=== PATIENT | female | born 1965 | race Caucasian/White ===

== ENCOUNTER 2024-06-04 08:55 | Emergency (ER) | payer OTHER, SELFPAY ==
[2024-06-04 09:01] VITALS: BP 117/70; PULSE 103; RESP 18; TEMP 37.8; O2SAT 97
--- OUTSIDE RECORDS SUMMARY | 2024-06-04 09:16 | XMS_ITS | Encounter Summary ---
Author Organization [facility] Address [address] [place] [address] Phone Care Team Providers Care Public Welfare Worker Name Role Phone ChinmaychitraUmesh DO Primary Care Provider [phone] Encounter Details Date Type Department Care Team (Late st Contact Info) Description 05/02/2022 Lab Requisition [facility] Laboratory Services [address] [place] [address] Amrit Cao MD [address] [place] [address] [address] [place] [address] Encounter for screening for COVID-19 Social History Tobacco Use Types Packs/Day Years Used Date Smoking Tobacco: Every Day Cigarettes Smokeless Tobacco: Never Alcohol Use Standard Drinks/Week Comments Yes 0 (1 standard drink = 0.6 oz pur e alcohol) Sexually Active Control Partners Comments Yes Male Comments No Sex and Gender Information Value Date Recorded Sex Assigned at Not on file Legal Sex Female 8:51 PM CDT Gender Identity Not on file Sexual Orientation Not on file documented as of this encounter Plan of Treatment Not on file documented as of this encounter Procedures Procedure Name Priority Date/Time Associated Diagnosis Comments SARS-COV-2 BY MOLECULAR Routine 05/02/2022 11:15 AM STAFF MECHANICAL ENGINEER Encounter for screening for COVID-19 documented in this encounter Results * SARS-COV-2 BY MOLECULAR (05/02/2022 11:15 AM STAFF MECHANICAL ENGINEER) SARSCOV2 NOT DETECTED (Referen ce Range for this test is Not Detected ) [facility] THERMOFISHER FAST DX 05/02/2022 11:13 PM STAFF MECHANICAL ENGINEER [facility] Comment:This test was perfor med by a RT-PCR method. Other Non-Phlebotomy Collection / Unknown 05/02/2022 11:15 AM STAFF MECHANICAL ENGINEER 05/02/2022 1:09 PM STAFF MECHANICAL ENGINEER Narrative [facility] - 05/02/2022 11:13 PM STAFF MECHANICAL ENGINEER Authorized Fact Sheets about this test for providers and patients are available at: https://www.fda.gov/medical-devices/fhmaasbmp-hmdtwdafns-rarzgpz-devices/emergen -us e-authorizations us Amrit Cao MD MICROBIOLOGY - GENERAL ORDERAB LES Final Result [facility] [address] [place] [address], documented in this encounter Visit Diagnoses Diagnosis Encounter for screening for COVID-19 documented in this encounter Additional Health Concerns Infection Onset Date Last Indicated Resolved Time COVID - 19 04/26/2022 05/09/2022 05/19/2022 12:1 6 AM STAFF MECHANICAL ENGINEER documented as of this encounter Care Teams Public Welfare Worker Relationship Specialty Start Date End Date Umesh Cullen DO PCP - General Family Medicine 02/19/18 documented as of this encounter
--- OUTSIDE RECORDS SUMMARY | 2024-06-04 09:16 | XMS_ITS | Referral Summary ---
Author Organization [facility] Address [address] [place] [address] Care Team Providers Care Furnace Tapper Name Role Phone Santi Cullen DO Primary Care Provider [phone]- [phone] Sandip Parker DO Unavailable [phone] Encounters Date Type Department Care Team Description 05/25/2024 10:15 AM ASBESTOS HAZARD ABATEMENT WORKER - 05/25/2024 11:59 PM ASBESTOS HAZARD ABATEMENT WORKER Hospital Encounter [address] [address] RUQ pain; Vomiting, unspecified vomiting type, unspecified whether nausea present Discharge Disposition: Discharge to home or self care 05/25/2024 10:15 AM ASBESTOS HAZARD ABATEMENT WORKER - 05/25/2024 11:59 PM [facility] Hospital Encounter [address] [address] Encounter for screening mammogram for malignant neoplasm of breast Discharge Disposition: Discharge to home or self care from Last 3 Months Allergies No known active allergies Medications venlafaxine XR (EFFEXOR-XR) 75 mg 24 hr capsule Take 75 mg by mouth daily. Active sertraline (ZOLOFT) 50 mg tablet Take 50 mg by mouth daily. Active nitroglycerin (NITROSTAT) 0.[address] 1 tablet (0.4 mg total) under the tongue every 5 (five) minutes as needed for chest pain (up to 3 times). 100 tablet 11 01/02/2018 Active thyroid (ARMOUR THYROID) 30 mg tablet 30 mg daily. Active cyanocobalamin (Vitamin B-12) 500 mcg tabletIndicatio ns:Prevention of Vitamin B12 Deficiency Take 500 mcg by mouth daily. Active magnesium gluconate (MAGONATE) 500 mg (27 mg elemental) tabletIndicatio ns:hypomagnesem ia Take 500 mg by mouth daily. Active dexlansoprazole (DEXILANT) 30 mg capsule Take 30 mg by mouth daily. Active Active Problems Problem Noted Date Diagnosed Date Hyperlipidemia 01/01/2018 EMELYN (generalized anxiety disorder) 01/01/2018 Prediabetes 01/01/2018 Chest pain 01/01/2018 Assessment & Plan (01/01/2018 1:02 PM CDT): Patient to be seen by cardiology. Patient has low risk for cardiac origin with a HEART score of less than 3. Most likely origin of pain is esophageal spasm as it did respond to nitroglycerin. Stress testing at the discretion of Cardiology. Plan for discharge when they have completed their workup. Immunizations Name Administration Dates Next Due Td, adsorbed 04/28/2009 Social History Tobacco Use Types Packs/Day Years Used Date Smoking Tobacco: Every Day Cigarettes Smokeless Tobacco: Never Alcohol Use Standard Drinks/Week Comments No 0 (1 standard drink = 0.6 oz pur e alcohol) Comments No Sex and Gender Information Value Date Recorded Sex Assigned at Not on file Legal Sex Female 11:55 PM ASBESTOS HAZARD ABATEMENT WORKER Gender Identity Not on file Sexual Orientation Not on file Last Filed Vital Signs Vital Sign Reading Time Taken Comments Blood Pressure 117/75 03/02/2018 12:30 PM ASBESTOS HAZARD ABATEMENT WORKER Pulse 89 03/02/2018 12:30 PM ASBESTOS HAZARD ABATEMENT WORKER Temperature 36.6 C (97.8 F) 03/02/2018 12:30 PM ASBESTOS HAZARD ABATEMENT WORKER Respiratory Rate 18 03/02/2018 12:30 PM ASBESTOS HAZARD ABATEMENT WORKER Oxygen Saturation 100% 03/02/2018 12:30 PM ASBESTOS HAZARD ABATEMENT WORKER Inhaled Oxygen Concentration - - Weight 86.2 kg (190 lb) 03/02/2018 11:13 AM ASBESTOS HAZARD ABATEMENT WORKER Height 162.6 cm (5' 4 ) 05/25/2024 10:25 AM ASBESTOS HAZARD ABATEMENT WORKER Body Mass Index 32.61 03/02/2018 11:13 AM ASBESTOS HAZARD ABATEMENT WORKER Plan of Treatment Not on file Procedures Procedure Name Priority Date/Time Associated Diagnosis Comments NM HEPATOBILIARY IMAGING W PHARMACEUTICAL INTERVENTION Schedule Routine, Read Routine (OP Routine) 05/25/2024 1:40 PM ASBESTOS HAZARD ABATEMENT WORKER RUQ pain Vomiting, unspecified vomiting type, unspecified whether nausea present SCREENING MAMMOGRAM BILATERAL W BIGG Schedule Routine, Read Routine (OP Routine) 05/25/2024 10:25 AM ASBESTOS HAZARD ABATEMENT WORKER Encounter for screening mammogram for malignant neoplasm of breast HEPATITIS C ANTIBODY Routine 01/03/2024 9:44 AM CDT COLONOSCOPY 03/02/2018 11:33 AM ASBESTOS HAZARD ABATEMENT WORKER from Last 3 Months or Most Recently Relevant to Health Maintenance Results * NM Hepatobiliary Imaging W GBEF (05/25/2024 1:40 PM ASBESTOS HAZARD ABATEMENT WORKER) Anatomical Region Laterality Modality Body N/A Nuclear Medicine 05/25/2024 3:01 PM ASBESTOS HAZARD ABATEMENT WORKER Narrative 05/25/2024 3:04 PM ASBESTOS HAZARD ABATEMENT WORKER EXAM DESCRIPTION: NM HEPATOBILIARY IMAGING W PHARMACEUTICAL INTERVENTION RADIOPHARMACEUTICAL: 5.2 mCi Tc-99m mebrofenin via a left antecubital vein IV site and 8 oz Ensure Plus or equivalent P.O. REASON FOR STUDY: Intermittent abdominal pain and bloating for 2 years. TECHNIQUE: Following the intravenous administration of the radiopharmaceutical, sequential abdominal images were obtained. COMPARISON: CT abdomen and pelvis 06/22/2021, abdominal ultrasound 05/01/2021 FINDINGS: Adequate clearance of the radiotracer from the blood pool. Activity appears within the gallbladder at the 10 minute image. Subsequent images show activity within the small bowel. Following the oral administration of Ensure Plus or equivalent, the gallbladder ejection fraction was calculated and was 53% (normal: greater than 40%, equivocal: 30-40%, and abnormal: less than 30%). IMPRESSION: No scintigraphic evidence of common bile or cystic duct obstruction. Normal contractile response of the gallbladder to fatty meal stimulation. THIS IS AN ELECTRONICALLY VERIFIED FINAL REPORT 05/25/2024 3:04 PM - Electronically signed by Jamie Marin M.D. LB: DEEJAY Report ID: [id number] Reading Location: [id number] Procedure Note Jamie Marin MD - 05/25/2024 EXAM DESCRIPTION: NM HEPATOBILIARY IMAGING W PHARMACEUTICAL INTERVENTION RADIOPHARMACEUTICAL: 5.2 mCi Tc-99m mebrofenin via a left antecubitalvein IV site and 8 oz Ensure Plus or equivalent P.O. REASON FOR STUDY: Intermittent abdominal pain and bloating for 2 years. TECHNIQUE: Following the intravenous administration of the radiopharmaceutical, sequential abdominal images were obtained. COMPARISON: CT abdomen and pelvis 06/22/2021, abdominal [id number]/04/2022 FINDINGS: Adequate clearance of the radiotracer from the blood pool. Activityappears within the gallbladder at the 10 minute image. Subsequent images show activity within the small bowel. Following the oral administration of Ensure Plus or equivalent, the gallbladder ejection fraction was calculated and was 53% (normal:greater than 40%, equivocal: 30-40%, and abnormal: less than 30%). IMPRESSION: No scintigraphic evidence of common bile or cystic duct obstruction. Normal contractile response of the gallbladder to fatty meal stimulation. THIS IS AN ELECTRONICALLY VERIFIED FINAL REPORT 05/25/2024 3:04 PM - Electronically signed by Jamie Marin M.D. LB: LB Report ID: [id number] Reading Location: [id number] Santi Cullen DO IMG NM PROCEDURES Final Re sult * Screening Mammogram Bilateral W Bigg (05/25/2024 10:25 AM ASBESTOS HAZARD ABATEMENT WORKER) Anatomical Region Laterality Modality Breast Bilateral Mammography 05/25/2024 1:42 PM ASBESTOS HAZARD ABATEMENT WORKER Impressions 05/25/2024 1:42 PM ASBESTOS HAZARD ABATEMENT WORKER There is no mammographic evidence of malignancy. A 1 year screening mammogram is recommended. BI-RADS: 1 - Negative. The patient has been or will be contacted. The patient will be entered into a reminder system with a target due date of 1 year for her next mammogram. Electronically signed by: Zachary Damon M.D. Narrative 05/25/2024 1:42 PM ASBESTOS HAZARD ABATEMENT WORKER EXAMINATION: SCREENING MAMMOGRAM BILATERAL W BIGG ORDERING HEALTHCARE PROVIDER: SANTI CULLEN HISTORY: Routine screening mammography. COMPARISON: 04/22/2023,08/31/2021, 08/11/2020, 06/18/2019, 04/01/2018, 01/17/2017 TECHNIQUE: CC and MLO views of the bilateral breasts were obtained with digital technique using breast tomosynthesis with C view. Computer aided detection was utilized. FINDINGS: DENSITY: There are scattered areas of fibroglandular density. BREASTS: There are no suspicious masses, suspicious calcifications, or other suspicious findings in either breast. There has been no suspicious interval change. us Santi Cullen DO IMG MAMMO PROCEDURES Final Result * Hepatitis C antibody Blood (01/03/2024 9:44 AM CDT) Hep C Ab Nonreactive Nonreactive Comment: Interpretive Data Nonreactive: Antibodies to HCV not detected. Does NOT exclude the possibility of recent exposure to HCV. Equivocal: Equivocal for HCV antibodies. Supplemental molecular testing will be automatically performed to determine infection status in accordance with current CDC screening recommendations. Reactive: Positive for HCV antibodies. This may represent current or past HCV infection. Supplemental molecular testing will be automatically performed to determine current infection status in accordance with current CDC screening recommendations. Interpretive data was last revised on 2019. Testing performed by: [facility], [address] [place] [address]., [id number] Blood 01/03/2024 9:44 AM CDT 01/03/2024 2:04 PM CDT us Joanna Nixon JUNIOR STAFF ACCOUNTANT LAB MICROBIOLOGY - GENERAL ORDERABLES Final Result [facility] Department [place] [address] * COLONOSCOPY (03/02/2018 11:33 AM ASBESTOS HAZARD ABATEMENT WORKER) Anatomical Region Laterality Modality Other Narrative Procedure Note Kate Jenkins MD - 03/02/2018 11:[address] [facility] Patient Name: Pita Mcnally Procedure Date: 03/02/2018 11:33 AM Date of : 1965 Admit Type: Outpatient Age: 52 Gender: Female Attending MD: Kate Jenkins MD Room: [facility] ENDOSCOPY ROOM 1 Note Status: Finalized Patient Profile: 52 WF, screening for colon cancer, no family h/ocolon cancer. Procedure: Colonoscopy Indications: Screening for colorectal malignant neoplasm, This is the patient's first colonoscopy, Last colonoscopy: February 2017 Referring MD: Santi Cullen DO Providers: Kate Jenkins MD Impression: - The entire examined colon is normal. - Internal hemorrhoids. - No specimens collected. Recommendation: - Continue present medications. - Discharge patient to home. - Repeat colonoscopy in 10 years for screeningpurposes. Medicines: Monitored Anesthesia Care Complications: No immediate complications. Estimated Blood Loss: Estimated blood loss: none. Procedure: Pre-Anesthesia Assessment: - Prior to the procedure, a History and Physical was performed, and patient medications and allergieswere reviewed. The patient's tolerance of previous anesthesia was also reviewed. The risks and benefitsof the procedure and the sedation options and riskswere discussed with the patient. All questions were answered, and informed consent was obtained. Prior Anticoagulants: The patient has taken no previous anticoagulant or antiplatelet agents. ASA Grade Assessment: II - A patient with mild systemicdisease. After reviewing the risks and benefits, the patientwas deemed in satisfactory condition to undergo the procedure. The benefits, risks and alternatives of theprocedure and sedation were discussed and informed consent was obtained. All questions were answered. Please referto the signed informed consent document in the medical record. The scope was passed under direct vision.The Pediatric Colonoscope [id number]-[id number] was introduced through the anus and advanced to the the cecum, identified by appendiceal orifice andileocecal valve. The colonoscopy was performed without difficulty. The patient tolerated the procedurewell. The quality of the bowel preparation wasexcellent. Findings: The perianal and digital rectal examinations were normal. The cecum appeared normal. The colon (entire examined portion) appeared normal. No polyps and no mass lesions. Internal hemorrhoids were found during retroflexion. The hemorrhoids were medium-sized. Electronically signed by Kate Jenkins M.D. Kate Jenkins MD 03/02/2018 12:02:36 PM Number of Addenda: 0 Note Initiated On: 03/02/2018 11:33 AM Procedure Code(s): --- Professional --- 84793, Colonoscopy, flexible; diagnostic, including collection of specimen(s) by brushing or washing, when performed (separateprocedure) Diagnosis Code(s): --- Professional --- Z12.11, Encounter for screening for malignant neoplasm of colon K64.8, Other hemorrhoids CPT copyright 2017 [employer]. All rights reserved. The codes documented in this report are preliminary and upon draw bench operator reviewmay be revised to meet current compliance requirements. Recognized by the [employer] for promoting quality in endoscopy Kate Jenkins MD ENDOSCOPY PROCEDURES Final Result from Last 3 Months or Most Recently Relevant to Health Maintenance Insurance [employer] OPEN ACCESS [employer] OPEN ACCESS WORKERS COMPENSATION GENERIC Advance Directives For more information, please contact: [phone] * Full Code (Latest Code Status on File) Date Activated Date Inactivated Comments 03/02/2018 11:00 AM 03/02/2018 3:15 PM * Full Code Date Activated Date Inactivated Comments 03/02/2018 11:00 AM 03/02/2018 11:00 AM * Full Code Date Activated Date Inactivated Comments 01/01/2018 12:39 AM 01/02/2018 1:19 PM Care Teams Furnace Tapper Relationship Specialty Start Date End Date Santi Cullen DO PCP - General 08/04/06 Sandip Parker DO Cardiovascular Disease 01/02/18
--- OUTSIDE RECORDS SUMMARY | 2024-06-04 09:16 | XMS_ITS | Encounter Summary ---
Author Organization [facility] Address [address] [place] [address] Phone Care Team Providers Care Director Multiple Sclerosis Center Name Role Phone ChinmaychitraUmesh DO Primary Care Provider [phone]- [phone] Encounter Details Date Type Department Care Team (Late st Contact Info) Description 05/09/2022 Lab Requisition [facility] Laboratory Services [address] [place] [address] Amrit Cao MD [address] [place] [address] [address] [place] [address] Encounter for screening for COVID-19 Social History [...] Associated Diagnosis Comments SARS-COV-2 BY MOLECULAR Routine 05/09/2022 9:36 AM ELECTION WATCHER Encounter for screening for COVID-19 documented in this encounter Results * SARS-COV-2 BY MOLECULAR (05/09/2022 9:36 AM ELECTION WATCHER) SARSCOV2 NOT DETECTED (Referen ce Range for this test is Not Detected ) [facility] THERMOFISHER FAST DX 05/10/2022 6:43 AM ELECTION WATCHER [facility] Comment:This test was perfor med by a RT-PCR method. Other Non-Phlebotomy Collection / Unknown 05/09/2022 9:36 AM ELECTION WATCHER 05/09/2022 11:08 AM ELECTION WATCHER Narrative [facility] - 05/10/2022 6:43 AM ELECTION WATCHER Authorized Fact Sheets about this test for providers and patients are available at: https://www.fda.gov/medical-devices/lbiqtrboe-dbeaqgqxhb-rwszjny-devices/emergen -us e-authorizations us Amrit Cao MD MICROBIOLOGY - GENERAL ORDERAB LES Final Result [facility] [address] [place] [address], documented in this encounter Visit Diagnoses Diagnosis Encounter for screening for COVID-19 documented in this encounter Additional Health Concerns Infection Onset Date Last Indicated Resolved Time COVID - 19 04/26/2022 05/09/2022 05/19/2022 12:1 6 AM ELECTION WATCHER documented as of this encounter Care Teams Director Multiple Sclerosis Center Relationship Specialty Start Date End Date Umesh Cullen DO PCP - General Family Medicine 02/19/18 documented as of this encounter
--- OUTSIDE RECORDS SUMMARY | 2024-06-04 09:17 | XMS_ITS | Encounter Summary ---
Author Organization [facility] Address [address] [place] [address] Phone Care Team Providers Care Automatic Winder Operator Name Role Phone Umesh Cullen DO Primary Care Provider [phone]- [phone] Encounter Details Date Type Department Care Team (Late st Contact Info) Description 04/26/2022 Lab Requisition [facility] Laboratory Services [address] [place] [address] Amrit Cao MD [address] [place] [address] [address] [place] [address] Encounter for screening for COVID-19 Social History [...] Associated Diagnosis Comments SARS-COV-2 BY MOLECULAR Routine 04/26/2022 11:35 AM RISK MANAGEMENT SPECIALIST Encounter for screening for COVID-19 documented in this encounter Results * SARS-COV-2 BY MOLECULAR (04/26/2022 11:35 AM RISK MANAGEMENT SPECIALIST) SARSCOV2 NOT DETECTED (Referen ce Range for this test is Not Detected ) [facility] THERMOFISHER FAST DX 04/27/2022 12:21 AM RISK MANAGEMENT SPECIALIST [facility] Comment:This test was perfor med by a RT-PCR method. Other Non-Phlebotomy Collection / Unknown 04/26/2022 11:35 AM RISK MANAGEMENT SPECIALIST 04/26/2022 4:15 PM RISK MANAGEMENT SPECIALIST Narrative [facility] - 04/27/2022 12:21 AM RISK MANAGEMENT SPECIALIST Authorized Fact Sheets about this test for providers and patients are available at: https://www.fda.gov/medical-devices/guhzittap-zzjxlasutl-sgxjosc-devices/emergen -us e-authorizations us Amrit Cao MD MICROBIOLOGY - GENERAL ORDERAB LES Final Result [facility] [address] [place] [address], documented in this encounter Visit Diagnoses Diagnosis Encounter for screening for COVID-19 documented in this encounter Additional Health Concerns Infection Onset Date Last Indicated Resolved Time COVID - 19 04/26/2022 05/09/2022 05/19/2022 12:1 6 AM RISK MANAGEMENT SPECIALIST documented as of this encounter Care Teams Automatic Winder Operator Relationship Specialty Start Date End Date Umesh Cullen DO PCP - General Family Medicine 02/19/18 documented as of this encounter
--- OUTSIDE RECORDS SUMMARY | 2024-06-04 09:17 | XMS_ITS | Clinical Summary ---
Author Organization [facility] Address [address] [place] [address] Care Team Providers Care Lasting Machine Operator Name Role Phone Santi Cullen DO Primary Care Provider [phone] Sandip Parker DO Unavailable [phone] Allergies No known active allergies Medications venlafaxine [...] discharge when they have completed their workup. Encounters Date Type Department Care Team Description 05/25/2024 10:15 AM AVIATION ELECTRONIC WARFARE OPERATOR - 05/25/2024 11:59 PM AVIATION ELECTRONIC WARFARE OPERATOR Hospital Encounter [facility] [address] [place] [address] Encounter for screening mammogram for malignant neoplasm of breast Discharge Disposition: Discharge to home or self care 05/25/2024 10:15 AM AVIATION ELECTRONIC WARFARE OPERATOR - 05/25/2024 11:59 PM AVIATION ELECTRONIC WARFARE OPERATOR Hospital Encounter [address] [address] RUQ pain; Vomiting, unspecified vomiting type, unspecified whether nausea present Discharge Disposition: Discharge to home or self care from Last 3 Months Immunizations Name Administration Dates Next Due Td, adsorbed 04/28/2009 Surgical History Surgery Date Site/Laterality Comments OTHER SURGICAL HISTORY 04/28/2008 - 04/27/2009 DUB: uterine oblation ABLATION TUBAL LIGATION approx 15 yrs ago COLONOSCOPY 03/02/2018 first Medical History Medical History Date Comments Hx Other Medical DUB Hx Other Medical 1988 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 Smoking Hypothyroidism Dysphagia 12/2017 esophageal spams Family History Medical History Relation Name Comments Prostate cancer Father Cancer, pros panda; Hyperlipidemia Mother Hyperlipidemi a; Hypothyroidism Sister Hypothyroidis m; Breast cancer Neg Hx Ovarian cancer Neg Hx Thyroid cancer Neg Hx Relation Name Status Comments Father Alive Mother Alive Sister Social History Tobacco Use Types Packs/Day Years Used Date Smoking Tobacco: Every Day Cigarettes Smokeless Tobacco: Never Alcohol Use Standard Drinks/Week Comments No 0 (1 standard drink = 0.6 oz pur e alcohol) Comments No Sex and Gender Information Value Date Recorded Sex Assigned at Not on file Legal Sex Female 11:55 PM AVIATION ELECTRONIC WARFARE OPERATOR Gender Identity Not on file Sexual Orientation Not on file Obstetrics History Para Term AB IAB SAB Ectopic Multiple Livin g Live Births 3 3 3 Date Outcome GA Total Labor Labor/2nd/3rd Weight Sex Type Anes PTL Fabi A1 A5 Name Clin Term Term Term Last Filed Vital Signs Vital Sign Reading Time Taken Comments Blood Pressure 117/75 03/02/2018 12:30 PM AVIATION ELECTRONIC WARFARE OPERATOR Pulse 89 03/02/2018 12:30 PM AVIATION ELECTRONIC WARFARE OPERATOR Temperature 36.6 C (97.8 F) 03/02/2018 12:30 PM AVIATION ELECTRONIC WARFARE OPERATOR Respiratory Rate 18 03/02/2018 12:30 PM AVIATION ELECTRONIC WARFARE OPERATOR Oxygen Saturation 100% 03/02/2018 12:30 PM AVIATION ELECTRONIC WARFARE OPERATOR Inhaled Oxygen Concentration - - Weight 86.2 kg (190 lb) 03/02/2018 11:13 AM AVIATION ELECTRONIC WARFARE OPERATOR Height 162.6 cm (5' 4 ) 05/25/2024 10:25 AM AVIATION ELECTRONIC WARFARE OPERATOR Body Mass Index 32.61 03/02/2018 11:13 AM AVIATION ELECTRONIC WARFARE OPERATOR Plan of Treatment Health Maintenance Due Date Last Done Comments Cervical Cancer Screening 1966 Depression Screening 1966 Pneumococcal vaccine <65 (1 of 2 - PCV) 1972 Regular Well Visit/Exam 18-64 1984 DTaP/Tdap/Td Vaccine (1 - Tdap) 04/29/2009 0 Zoster Vaccine (1 of 2) 2016 Influenza Vaccine (#1) 2023 Breast Cancer Screening-Mammogram 05/25/2025 05/25/2024, 04/22/2023, 01/30/2018, Additional history exists Colon Cancer Screening-Colonoscopy 03/02/2028 03/02/2018 Colon Cancer Screening-CT Colonography Discontinued 03/02/2018 Colon Cancer Screening-DNA Stool Discontinued 03/02/20 18 Colon Cancer Screening-FIT Discontinued 03/02/2018 Colon Cancer Screening-Sigmoidoscopy Discontinued 03/02/2018 Hepatitis B Screening Completed 01/03/2024 Hepatitis C Screening Completed 01/03/2024 Procedures Procedure Name Priority Date/Time Associated Diagnosis Comments NM HEPATOBILIARY IMAGING W PHARMACEUTICAL INTERVENTION Schedule Routine, Read Routine (OP Routine) 05/25/2024 1:40 PM AVIATION ELECTRONIC WARFARE OPERATOR RUQ pain Vomiting, unspecified vomiting type, unspecified whether nausea present SCREENING MAMMOGRAM BILATERAL W BIGG Schedule Routine, Read Routine (OP Routine) 05/25/2024 10:25 AM AVIATION ELECTRONIC WARFARE OPERATOR Encounter for screening mammogram for malignant neoplasm of breast HEPATITIS C ANTIBODY Routine 01/03/2024 9:44 AM CDT COLONOSCOPY 03/02/2018 11:33 AM AVIATION ELECTRONIC WARFARE OPERATOR from Last 3 Months or Most Recently Relevant to Health Maintenance Results * NM Hepatobiliary Imaging W GBEF (05/25/2024 1:40 PM AVIATION ELECTRONIC WARFARE OPERATOR) Anatomical Region Laterality Modality Body N/A Nuclear Medicine 05/25/2024 3:01 PM AVIATION ELECTRONIC WARFARE OPERATOR Narrative 05/25/2024 3:04 PM AVIATION ELECTRONIC WARFARE OPERATOR EXAM DESCRIPTION: NM HEPATOBILIARY IMAGING W PHARMACEUTICAL [...] Jamie Marin M.D. LB: DEEJAY Report ID: [id number] Reading Location: [id number] Procedure Note Jamie Marin MD - 05/25/2024 [...] COMPARISON: CT abdomen and pelvis 06/22/2021, abdominal zfjjzdovzb41/04/2022 FINDINGS: Adequate clearance of the radiotracer from [...] Jamie Marin M.D. LB: DEEJAY Report ID: [id number] Reading Location: [place] [address] us Santi Cullen DO IMG NM PROCEDURES Final Re sult * Screening Mammogram Bilateral W Bigg (05/25/2024 10:25 AM AVIATION ELECTRONIC WARFARE OPERATOR) Anatomical Region Laterality Modality Breast Bilateral Mammography 05/25/2024 1:42 PM AVIATION ELECTRONIC WARFARE OPERATOR Impressions 05/25/2024 1:42 PM AVIATION ELECTRONIC WARFARE OPERATOR There is no mammographic evidence of malignancy. A 1 year screening mammogram is recommended. BI-RADS: 1 - Negative. The patient has been or will be contacted. The patient will be entered into a reminder system with a target due date of 1 year for her next mammogram. Electronically signed by: Zachary Damon M.D. Narrative 05/25/2024 1:42 PM AVIATION ELECTRONIC WARFARE OPERATOR EXAMINATION: SCREENING MAMMOGRAM BILATERAL W BIGG ORDERING [...] last revised on 2019. Testing performed by: [facility], [address] [place] [address]., [id number] Blood 01/03/2024 9:44 AM CDT 01/03/2024 2:04 PM CDT us Joanna Nixon NP LAB MICROBIOLOGY - GENERAL ORDERABLES Final Result [facility] Department [place] [address] * COLONOSCOPY (03/02/2018 11:33 AM AVIATION ELECTRONIC WARFARE OPERATOR) Anatomical Region Laterality Modality Other Narrative Procedure Note Kate Jenkins MD - 03/02/2018 11:33 AM CST [facility] Patient Name: Pita Mcnally Procedure Date: 03/02/2018 11:33 AM Date of : 1965 Admit Type: Outpatient Age: 52 Gender: Female Attending MD: Kate Jenkins MD Room: [facility] ENDOSCOPY ROOM 1 Note Status: Finalized Patient [...] passed under direct vision.The Pediatric Colonoscope [id number] was introduced through the anus and advanced [...] 11:33 AM Procedure Code(s): --- Professional --- 19499, Colonoscopy, flexible; diagnostic, including collection of specimen(s) by brushing or washing, when performed (separateprocedure) Diagnosis Code(s): --- Professional --- Z12.11, Encounter for screening for malignant neoplasm of colon K64.8, Other hemorrhoids CPT copyright 2017 [employer] [place] [employer]. All rights reserved. The codes documented in this report are preliminary and upon sas developer analyst reviewmay be revised to meet current compliance requirements. Recognized by the [place] [employer] for promoting quality in endoscopy Kate Jenkins MD ENDOSCOPY PROCEDURES Final Result from Last 3 Months or Most Recently Relevant to Health Maintenance Insurance [employer] [facility] PPO HEALTHLINK OPEN ACCESS HE[employer] OPEN ACCESS Advance Directives For more information, please contact: [phone] * Full Code (Latest Code Status on File) Date Activated Date Inactivated Comments 03/02/2018 11:00 AM 03/02/2018 3:15 PM * Full Code Date Activated Date Inactivated Comments 03/02/2018 11:00 AM 03/02/2018 11:00 AM * Full Code Date Activated Date Inactivated Comments 01/01/2018 12:39 AM 01/02/2018 1:19 PM Care Teams Lasting Machine Operator Relationship Specialty Start Date End Date Santi Cullen DO PCP - General 08/04/06 Snadip Parker DO Cardiovascular Disease 01/02/18
--- OUTSIDE RECORDS SUMMARY | 2024-06-04 09:17 | XMS_ITS | Clinical Summary ---
Author Organization [facility] Address [address] [place] [address] Phone Care Team Providers Care Pigment Furnace Tender Name Role Phone Umesh Cullen DO Primary Care Provider [phone] Allergies No known active allergies Medications ARMOUR THYROID 30 MG Tablet 30 mg daily. 0 01/22/2018 Act renée venlafaxine (EFFEXOR-XR) 75 MG CAPSULE SR 24 HR 75 mg daily. 4 01/19/2018 Active sertraline (ZOLOFT) 50 MG Tablet 50 mg. 1 01/09/2018 Active nitroGLYCERIN (NITROSTAT) 0.[address] 1 T UNDER THE TONGUE Q 5 MINUTES PRF CHEST PAIN UP TO THREE TIMES 11 01/02/2018 Active Cyanocobalamin (B-12) 100 MCG Tablet Take by mouth. Active MAGNESIUM PO Take by mouth. Active naproxen (NAPROSYN) 500 MG Tablet Take 1 Tablet by mouth 2 times daily as needed for Mild or more severe pain. 20 Tablet 01/17/2024 Active Family History Medical History Relation Name Comments Congestive Heart Failure Mother Hypertension Mother Hypothyroidism Mother Hypothyroidism Sister 1 No Known Problems Sister 2 Relation Name Status Comments Father Alive Mother Alive Sister 1 Alive Sister 2 Alive Social History Tobacco Use Types Packs/Day Years Used Date Smoking Tobacco: Every Day Cigarettes Smokeless Tobacco: Never Tobacco Cessation:Ready to Q uit: No; Counseling Given: Yes Alcohol Use Standard Drinks/Week Comments Yes 0 [...] Sign Reading Time Taken Comments Blood Pressure 109/55 01/17/2024 11:15 AM CDT Pulse 80 01/17/2024 11:15 AM CDT Temperature 37.3 C (99.1 F) 01/17/2024 8:22 AM CDT Respiratory Rate 20 01/17/2024 8:22 AM CDT Oxygen Saturation 94% 01/17/2024 11: 15 AM CDT Inhaled Oxygen Concentration - - Weight 90.2 kg (198 lb 13.7 oz) 01/17/2024 8:22 AM CDT Height 162.6 cm (5' 4 ) 01/17/2024 8:22 AM CDT Body Mass Index 34.13 01/17/2024 8:22 AM CDT Plan of Treatment Health Maintenance Due Date Last Done Comments Hepatitis C Virus (HCV) Screening 1966 TdaP Immunization 1966 Pneumococcal Immunization Co mbined (1 of 2 - PCV) 1972 Hepatitis B Immunization (1 of 3 - 19+ 3-dose series) 1985 Pneumococcal Immunization (5 0+ years) (1 of 2 - PCV) 1985 Pap Smear 08/11/1987 Cervical Cancer Screening (CCS) 1996 HPV/Cotest 1996 Colonoscopy 08/11/2011 Colorectal Cancer Screening 08/11/2011 Cologuard 2016 Immunochemical Fecal Occult Blood 2016 Mammogram 2016 Zoster Immunization (1 of 2) 2016 Influenza Immunization (#1) 2023 SARS-COV-2 Immunization ( season) 2023 Respiratory Syncytial Virus (RSV) Immunization (Adult) (1 - 1-dose 75+ series) 2041 Meningococcal Immunization (ACWY) Aged Out No longer eligible based on patient's age to complete this topic Rotavirus Immunization Aged Out No lo nger eligible based on patient's age to complete this topic Insurance [employer] * Guarantor: [employer] Account Type Relation to Patient Date of Phone Billing Address Institutional Other [address] [place] [address] Care Teams Pigment Furnace Tender Relationship Specialty Start Date End Date Umesh Cullen DO PCP - General Family Medicine 02/19/18
--- OUTSIDE RECORDS SUMMARY | 2024-06-04 09:17 | XMS_ITS | Data Portability ---
Author Organization [facility] Address [address] [place] [address] Assessment No assessment recorded. Plan of Treatment Reminders Order Date Submit Date Provider Last Modified By Organization Details Last Modified Time Details Appointments None recorded. Lab SARS CoV 2 RNA (COVID-19 ), QL, residential aide-PCR, respirato ry specimen - denies having any COVID-19 symptoms. Exposed to pos COVID-19 patient , [employer] [place]. [place] [address] 2019 020 [facility] (Lab), [address] [place], [address], 0 18:15:11 cytology report, thin prep, smear or scraping, cervical or vaginal - brush and broom 2023 024 [facility], [address], [address], [place], [address], 4 16:11:07 surgical pathology study - Left armpit 2023 024 [facility] [address], [address], [place], [address], 4 15:19:00 test, urine 2023 024 [email or web address] In-Office Order, Internal Use Only DO Not Attach Compendium DO Not Attach Compendium, Do Not Delete/merge, [id number] 4 15:54:30 biopsy, colposcop y - 1 container marked ECC 2023 024 [email or web address] [facility], [address], [address] [facility], [place], [address], 08:07:57 Referral None recorded. Procedures excision, skin tag (PROC) 2023 etodaroma Not available 12:37:53 Surgeries None recorded. Imaging None recorded. Medication Orders mupirocin 2 % topical [facility]intment [id number], [address], [place], [place], [id number], 10:48:34 Bactrim DS 800 mg-160 mg tablet 2023 [id number], [address], [place], [place], [id number], 10:48:35 mupirocin 2 % topical ointment 20[facility], [address], [place], [place], [id number], 11:03:11 Patient TargetsNo targets recorded. Patient Instructions Encounter Date Encounter Id Patient Instructions Last Modified By Organization Details Last Modified Time 01/06/2020 [id number] Reviewed the following recommendations: -Stay home and separate from others as much as possible. -Monitor your symptoms and seek medical attention for trouble breathing, persistent chest pain, confusion, or bluish lips or face. -Wear a mask if you must be around other people. -Wash your hands often for 20 seconds with soap and water and clean high-touch surfaces daily -You may discontinue home isolation if your symptoms are improving and it has been 10 days since symptoms started. [email or web address] Not available 01/06/2020 11:37:18 12/23/2023 [id number] A healthy lifestyle: care instructions loren Not available 12/23/2023 10:48:28 01/02/2024 [id number] On the date of this encounter, I saw and examined the patient, personally verifying the coe and critical findings in the resident s note. I reviewed and agree with the resident/fellow s findings and plan. ~MD Alida [email or web address] Not available 01/02/2024 17:47:50 01/06/2024 [id number] colposcopy: before your procedure fernstrn Not available 01/06/2024 10:51:02 colposcopy: what to expect at home fernstrn Not available 01/06/2024 10:51:02 02/02/2024 [id number] A healthy lifestyle: care instructions [email or web address] Not available 02/02/2024 15:44:53 abnormal Pap test: care instructions chris Not available 02/02/2024 15:54:30 colposcopy: before your procedure erna Not available 02/02/2024 15:54:30 Reason for Referral None Reported. Results Created Date Observation Date Name Description Value Unit Range Abnormal Flag Note LastModifiedBy Organization Detail LastModifiedTime 01/06/20 20 01/06/2020 SARS CoV 2 RNA (COVI D-19) , QL, residential aide-P CR, respi rator y speci men sars - cov - 2 PCR NEGATI VE mL Not Available [facility] (Lab) [address] [place], [address], 01/07/2020 18:15:11 01/06/20 20 01/06/2020 SARS CoV 2 RNA (COVI D-19) , QL, residential aide-P CR, respi rator y speci men covidcom1 COMME NTS: This assay is desig misty to detec t the RdRp and N genes of SARS- CoV-2 using nucle ic acid ampli ficat ion. A negat renée resul t does not precl ude the possi bilit y of 2019- nCoV infec tion since the adequ acy of sampl e colle ction and/o r low viral burde n may resul t in the prese nce of viral nucle ic acids level s below the chandler tical sensi tivit y of this test metho d. Not Available [facility] (Lab) [address] [place], [address], 01/07/2020 18:15:11 01/06/20 20 01/06/2020 SARS CoV 2 RNA (COVI D-19) , QL, residential aide-P CR, respi rator y speci men covidcom2 Posit renée resul ts are indic ative of the prese nce of SARS- CoV-2 RNA and do not rule out bacte rial infec tion or co-in fecti on with other virus es. Not Available [facility] (Lab) [address] [facility], [place], [address], 01/07/2020 18:15:11 01/06/20 20 01/06/2020 SARS CoV 2 RNA (COVI D-19) , QL, residential aide-P CR, respi rator y speci men covidcom3 Test resul ts shoul d be used along with other clini cesario obser vatio ns, patie nt histo ry, epide miolo gical infor matio n and labor at[facility] data [facility] diagn osis. Not Available [facility] (Lab) [address] [facility], [place], [address], 01/07/2020 18:15:11 01/06/20 20 01/06/2020 SARS CoV 2 RNA (COVI D-19) , QL, residential aide-P CR, respi rator y speci men covidcom4 This test has recei malcolm FDA Emerg ency Use Autho rizat ion and has been verif ied by [facility] . This test is only autho rized for the durat ion of the decla ratio n and the circu mstan shraddha that exist to justi fy the autho rizat ion of the emerg ency use of in vitro diagn ostic tests for the detec tion of SARS- CoV-2 virus and/o r diagn osis of COVID -19 infec tion under secti on 564 (b) (1) of the Act. 11 U.S.C . 360bb b-3 (b) (1), unles s the autho rizat ion is termi nated or revok ed soone r. Not Available [facility] (Lab) [address] [place], [address], 01/07/2020 18:15:11 01/06/20 20 01/06/2020 SARS CoV 2 RNA (COVI D-19) , QL, residential aide-P CR, respi rator y speci men covidcom5 [facility] is certi fied under CLIA- 88 as quali fied to perfo rm high compl exity testi ng. This testi ng was perfo rmed in the [facility] [place] [address] (CLIA Licen se #[id number], CAP #[id number], AU-ID #[id number]). Not Available [facility] (Lab) [address] [place], [address], 01/07/2020 18:15:11 01/06/20 20 01/06/2020 SARS CoV 2 RNA (COVI D-19) , QL, residential aide-P CR, respi rator y speci men covidcom6 Facts heet for healt hcare provi ders: https ://ww w.fda .gov/ media /1362 56/do wnloa d Facts heet for patie nts: https ://ww w.fda .gov/ media /1362 57/do wnloa d Not Available [facility] (Lab) [address] [place], [address], 01/07/2020 18:15:11 12/23/19 24 12/25/2023 IGP, APTIM A HPV, RFX 16/18 ,45 HPV aptima POSITI VE negati ve abnormal This nucle ic acid ampli ficat ion test detec ts fourt een high- risk HPV types (16,1 8,31, 33,35 ,39,4 5,51, 52,56 ,58,5 9,66, 68) witho ut diffe renti ation . Not Available [facility] ([facility]) [address] [facility], [place], [address], 12/30/2023 16:11:07 12/23/19 24 12/30/2023 IGP, APTIM A HPV, RFX 16/18 ,45 diagnosis: SHERMAN Donato abnormal EPITH ELIAL CELL ABNOR MALIT Y. LOW GRADE SQUAM OUS INTRA EPITH ELIAL LESIO N (LSIL ). Not Available [facility] ([facility]) [address] [place], [address], 12/30/2023 16:11:07 12/23/19 24 12/30/2023 IGP, APTIM A HPV, RFX 16/18 ,45 recommendati on: SHERMAN Donato abnormal Sugge st follo w up as clini yue appro priat e. Not Available [facility] ([facility]) [address] [facility], [place], [address], 12/30/2023 16:11:07 12/23/19 24 12/30/2023 IGP, APTIM A HPV, RFX 16/18 ,45 specimen adequacy: SHERMAN Donato Satis facto ry for evalu ation . No endoc ervic al compo nent is ident ified . Not Available [facility] ([facility]) [address] [facility], [place], [address], 12/30/2023 16:11:07 12/23/19 24 12/30/2023 IGP, APTIM A HPV, RFX 16/18 ,45 clinician provided ICD10: SHERMAN Donato Z01.4 19 Not Available [facility] ([facility]) [address] [place], [address], 12/30/2023 16:11:07 12/23/19 24 12/30/2023 IGP, APTIM A HPV, RFX 16/18 ,45 performed by: SHERMAN liu Willi ams, Cytot echry donato (ASCP ) Not Available [facility] ([facility]) [address] [place], [address], 12/30/2023 16:11:07 12/23/19 24 12/30/2023 IGP, APTIM A HPV, RFX 16/18 ,45 electronical ly signed by: SHERMAN youssef MD, Patho saundra t Not Available [facility] ([facility]) [address] [place], [address], 12/30/2023 16:11:07 12/23/19 24 12/30/2023 IGP, APTIM A HPV, RFX 16/18 ,45 . . Not Available [facility] ([facility]) [address] [place], [address], 12/30/2023 16:11:07 12/23/19 24 12/30/2023 IGP, APTIM A HPV, RFX 16/18 ,45 pathologist provided ICD10: SHERMAN Donato R87.6 12 Not Available [facility] ([facility]) [address] [place], [address], 12/30/2023 16:11:07 12/23/19 24 12/30/2023 IGP, APTIM A HPV, RFX 16/18 ,45 note: SHERMAN Donato The Pap smear is a scree keyon test desig misty to aid in the detec tion of patrice ligna nt and malig nant condi tions of the uteri ne cervi x. It is not a diagn ostic proce dure and shoul d not be used as the sole means of detec ting cervi cesario cance r. Both false -posi tive and false -nega tive repor ts do occur . Not Available [facility] ([facility]) [address] [place], [address], 12/30/2023 16:11:07 12/23/19 24 12/30/2023 IGP, APTIM A HPV, RFX 16/18 ,45 test methodology: SHERMAN Donato This liqui d based ThinP rep(R ) pap test was scree misty with the use of an image guide trudy baez Not Available [facility] ([facility]) [address] [facility], [place], [address], 12/30/2023 16:11:07 12/23/19 24 12/30/2023 IGP, APTIM A HPV, RFX 16/18 ,45 HPV genotype reflex COMMEN T Crite sammie not met, HPV Genot ype not perfo rmed. Not Available [facility] ([facility]) [address] [facility], [place], [address], 12/30/2023 16:11:07 01/02/20 24 01/06/2024 PATHO LOGY REPOR T . COMMEN T Mater ial submi tted: . arm - LEFT ARM PIT SKIN TAGS. Modif iers: left Not Available [facility] ([facility]) [address] [facility], [place], [address], 01/06/2024 15:19:00 01/02/20 24 01/06/2024 PATHO LOGY REPOR T . COMMEN T Clini abebe provi ded ICD-1 0: L91.8 Not Available [facility] ([facility]) [address] [facility], [place], [address], 01/06/2024 15:19:00 01/02/20 24 01/06/2024 PATHO LOGY REPOR T . COMMEN T Diagn osis: EPIDE RMOID CYST. TMZ 01/05 0943 Local Not Available [facility] ([facility]) [address] [facility], [place], [address], 01/06/2024 15:19:00 01/02/20 24 01/06/2024 PATHO LOGY REPOR T . SHERMAN T Elect arnaldo morse noelle d: . Eveline MD, Deary topat holog ist Not Available [facility] ([facility]) [address] [facility], [place], [address], 01/06/2024 15:19:00 01/02/20 24 01/06/2024 PATHO LOGY REPOR T . SHERMAN T Gross descr iptio n: . 1 Conta iner, forma dorothy-f illed , label ed with patie nt ident ifica tion. LEFT ARM PIT SKIN TAGS: RECEI MALCOLM IS 1 FRAGM ENT(S ) OF WRINK LED POLYP OID VALENZUELA-B ROWN SKIN TISSU E MEASU RING 0..6 X 0.5 X 0.2 CM. THE SURGI CESARIO SUNIL N IS INKED GREEN . THE SPECI MEN IS BISEC RK AND SUBMI TTED IN CASSE TTE(S ) A1. RECEI MALCOLM ARE MULTI PLE FRAGM ENTS OF VALENZUELA POLYP OID TISSU E MEASU RING 0.7 X 0.6 X 0.2 CM IN AGGRE GATE. TISSU E IS NOT INKED . SPECI MEN IS FILTE RED. IT IS SUBMI TTED IN ITS ENTIR ETY IN CASSE TTE A2.24 -. THERE ARE 251T4 2 PIECE S TOTAL . ORT/O RT 01/04 0635 Local Not Available [facility] ([facility]) [address] [facility], [place], [address], 01/06/2024 15:19:00 01/02/2001/06/2024 PATHO LOGY REPOR T . COMMISHMAEL T Patho logis t provi ded ICD-1 0: L72.0 Not Available [facility] ([facility]) [address] [facility], [place], [address], 01/06/2024 15:19:00 01/02/20 24 01/06/2024 PATHO LOGY REPOR T . COMMEN T CPT . 91433 1 Not Available [facility] ([facility]) [address] [facility], [place], [address], 01/06/2024 15:19:00 02/02/20 24 02/05/2024 PATHO LOGY REPOR T . Commen t Mater ial submi tted: . endoc ervix - ENDOC ERVIC AL CURET TINGS Not Available [facility] ([facility]) [address] [facility], [place], [address], 02/05/2024 16:13:42 02/02/20 24 02/05/2024 PATHO LOGY REPOR T . Commen t Clini abebe provi ded ICD-1 0: R87.6 19 Not Available [facility] ([facility]) [address] [facility], [place], [address], 02/05/2024 16:13:42 02/02/20 24 02/05/2024 PATHO LOGY REPOR T . Commen t Clini cesario histo ry: . UNSPE CIFIE D ABNOR MAL CYTOL OGICA L FINDI NGS IN SPECI MENS FROM CERVI X UTERI Not Available [facility] ([facility]) [address] [facility], [place], [address], 02/05/2024 16:13:42 02/02/20 24 02/05/2024 PATHO LOGY REPOR T . Commen t Diagn osis: ENDOC ERVIC AL CURET TINGS : LOW-G RADE SQUAM OUS INTRA EPITH ELIAL LESIO N (BOST[place] 1). COMME NT: CLINI CESARIO CORRE LATIO N AND PATIE NT FOLLO WUP ARE RECOM ASHLEY DMoreno GXA 02/04 1454 Local Not Available [facility] ([facility]) [address] [facility], [place], [address], 02/05/2024 16:13:42 02/02/20 24 02/05/2024 PATHO LOGY REPOR T . Commen t Elect arnaldo drake d: . Morales guzman MD, Patho logis t Not Available [facility] ([facility]) [address] [facility], [place], [address], 02/05/2024 16:13:42 02/02/20 24 02/05/2024 PATHO LOGY REPOR T . Commen t Gross descr iptio n: . 1 Conta iner, forma dorothy-f illed , label ed with patie nt ident ifica tion. ENDOC ERVIC AL CURET TINGS : SCANT FRAGM ENT(S ) OF MUCUS AND SOFT MATER IAL MEASU RING 0.3 X 0.2 X 0.1 CM IN AGGRE GATE. FILTE RED AND SUBMI TTED IN CASSE TTE(S ) A1. THE SPECI MEN MAY NOT SURVI VE PROCE SSING . EVELIA/D RA 02/03 0054 Local Not Available [facility] ([facility]) [address] [facility], [place], [address], 02/05/2024 16:13:42 02/02/20 24 02/05/2024 PATHO LOGY REPOR T . Commen t Patho logis t provi ded ICD-1 0: N87.0 Not Available [facility] ([facility]) [address] [facility], [place], [address], 02/05/2024 16:13:42 02/02/20 24 02/05/2024 PATHO HAL Mayer Johanneishmael [place] C[place] . [address] 1 Not Available [facility] ([facility]) [address] [facility], [place], [address], 02/05/2024 16:13:42 02/02/20 24 02/02/2024 pregn mounika test, urine HCG negati ve Not Available In-Office Order Internal Use Only DO Not Attach Compendium DO Not Attach Compendium, Do Not Delete/merge, [id number] 02/02/2024 14:36:16 12/23/1902/26/2023 MAMMO , scree keyon, digit al, bilat eral No observ ation record ed. BARCODE Not Available 2023 10:33:43 Result Notes None recorded. Problems Name Problem SNOMED Code Status Onset Date Resolution Date Notes Provider Name and Address Organization Details Recorded Time Multiple skin tags [id number] Active 024 PATTY BARRON MD Attn: Accounting ,[address] [facility], [place], [address] , [facility] 4 09:49:31 Problem Notes None recorded. Procedures Surgical History Date Name Laterality Status Provider Name and Address Organization Details Recorded Time 4 Colposcopy completed Myke Mc MD Attn: Accounting,[address] [facility], [place], [address], [facility] 02/02/2024 15:38:55 4 Skin Tag Removal completed PATTY BARRON MD Attn: Accounting,[address] [facility], [place], [address], [facility] 01/02/2024 09:42:09 4 Date of Last Pap Smear completed SISSY Winters [place] - [facility] 12/23/2023 10:05:09 Endometrial Ablation completed SISSY Winters [facility] 12/23/2023 10:04:07 Tubal Ligation completed SISSY Winters [place] Lisa [facility] 12/23/2023 10:04:13 Imaging Results Imaging Date Name Status LastModified by Organiz ation Details LastModified Time 02/26/2023 MAMMO, screening, digital, bilateral completed BARCODE Information not available 12/23/2023 10:33:43 Procedure Notes None recorded. Medical Equipment None Reported. Allergies No known drug allergies Medications Name Sig Start Date Stop Date Status Note LastModified by Organization Details LastModified Time cyclobenzap rine 10 mg tablet TAKE 1 TABLET BY MOUTH TWICE DAILY FOR UP TO 10 DAYS NEEDED FOR MUSCLE SPASMS active Not Available Not Available No t Available fluconazole 150 mg tablet TAKE 1 TABLET BY MOUTH EVERY DAY 12/22 completed Not Available Not Available Not Available sulfamethox azole 800 mg-trimetho prim 160 mg tablet TAKE 1 TABLET BY MOUTH EVERY 12 HOURS FOR 10 DAYS active Not Available Not Available No t Available ketorolac 10 mg tablet TAKE 1 TABLET BY MOUTH EVERY 6 HOURS NEEDED FOR NECK PAIN OR STIFFNESS active Not Available Not Available No t Available pravastatin 80 mg tablet TAKE 1 TABLET BY MOUTH EVERY DAY 12/22 completed Not Available Not Available Not Available Zoloft 50 mg tablet Take 1 tablet every day by oral route. active Not Available Not Available No t Available mupirocin 2 % topical ointment APPLY A SMALL AMOUNT TO THE AFFECTED AREA BY TOPICAL ROUTE 3 TIMES PER DAY active Not Available Not Available No t Available naproxen 500 mg tablet TAKE 1 TABLET BY MOUTH TWICE DAILY NEEDED FOR PAIN FOR MILD OR MORE SEVERE PAIN active Not Available Not Available No t Available Vitals Date Recorded Body height Body mass index (BMI) Body weight Heart rate Systolic blood pressure Diastolic blood pressure Provider Name and Address Organization Details Last Updated DateTime 4 162.56 cm 34.2 kg/m2 58507.8 8 g 78 /min 108 mm[Hg] 73 mm[Hg] Eliana Harrison [place] - [facility] 4 10:17:43 Date Recorded Body height Body mass index (BMI) Body weight Heart rate Body temperature Respiratory rate Systolic blood pressure Diastolic blood pressure Provider Name and Address Organization Details Last Updated DateTime 4 162.56 cm 34 kg/m2 24382.6 9 g 68 /min 98.3 [degF] 18 /min 130 mm[Hg] 94 mm[Hg] Hilda Scott MA [facility] 4 09:12:58 Date Recorded Body height Body mass index (BMI) Body weight Systolic blood pressure Diastolic blood pressure Provider Name and Address Organization Details Last Updated DateTime 01/06/2024 162.56 cm 34.2 kg/m2 56096.88 g 115 mm[Hg] 81 mm[Hg] ElianaSISSY Gooden [facility] 4 10:48:57 Date Recorded Body height Body mass index (BMI) Body weight Systolic blood pressure Diastolic blood pressure Provider Name and Address Organization Details Last Updated DateTime 02/02/2024 162.56 cm 34 kg/m2 79303.57 g 120 mm[Hg] 88 mm[Hg] Daniella Gorman MA [facility] 14:52:02 Social History Question Answer Notes LastModified by Organizat ion Details LastModified Time Tobacco Smoking Status Current Every Day Smoker SISSY Winters null, [facility] 12/23/2023 10:09:37 What Is Your Level Of Alcohol Consumption? Occasional Information not available 12/23/2023 What Is Your Level Of Caffeine Consumption? Heavy Information not available 12/23/2023 What Was The Date Of Your Most Recent Tobacco Screening? 02/02/2024 Information not available 02/02/2024 How Much Tobacco Do You Smoke? 1 PPW Information not available 12/23/2023 Do You Use Any Illicit Or Recreational Drugs? No Information not available 12/23/2023 Has Tobacco Cessation Counseling Been Provided? Yes Information not available 01/05/2024 On What Date Was Tobacco Cessation Counseling Provided? 02/02/2024 Information not available 02/02/2024 How Many Years Have You Smoked Tobacco? 40 Information not available 12/23/2023 Do You Or Have You Ever Used Any Other Forms Of Tobacco Or Nicotine? No Information not available 12/23/2023 Sex: Female Functional Status None recorded. Mental Status None recorded. Family History Relationship Description Onset Age of this Age Resolved Age Notes LastModified by Organization Details LastModified Time Father Malignant tumor of prostate psimmonsma Not available 12/22 10:06:23 Maternal Aunt Hypercholest erolemia psimmonsma Not available 12/22 10:07:38 Mother Hypercholest erolemia psimmonsma Not available 12/22 10:07:38 Mother Malignant neoplasm of liver psimmonsma Not available 12/22 10:07:49 Mother Heart disease psimmonsma Not available 12/22 10:08:03 Mother Hypertensive disorder psimmonsma Not available 12/22 10:08:20 Mother Chronic obstructive pulmonary disease psimmonsma Not available 12/22 10:08:31 Medical History Condition Response Thyroid Problems Y Depression Y Headaches/Migraines Y Anxiety Disorder Y Have you had a colonoscopy in the last 1 0 years? Y Acid Reflux (GERD) Y High Cholesterol Y Liver Disease Y Osteoporosis Gynecological History Statement/Question Response Abnormal Pap Yes Sexually Active? Y STIs/STDs N Date of Last Pap Smear 12/23/2023 Sexual Problems? N Current Control Method Tubal Ligat ion Most Recent Mammogram LMP Unknown Obstetrics History GPAL:G 3 P 3 0 0 3 Type Value Full Term 3 Living 3 Total 3 Past Encounters Encounter ID Performer Location Encounter Start Date Encounter Closed Date Diagnosis/Indication Diagnosis SNOMED-CT Code Diagnosis ICD10 Code Diagnosis Note [id number] HARMAN Francisco [address] [place] [address] 01/06/2020 09:14:13 01/07/2020 07:32:47 Viral screening [id number] Z11.59 D/w pt the current pandemic of COVID-19 and call for social isolation in order to blunt the curve and minimize risk and spread. Encouraged patient and family to take restrictio ns seriously. They have verbalized understand ing of such. Viral syndrome [id number] B34.9 [id number] ROHIT Louis 14 OB 4 [facility] [address]ner [address] [place] [id number] 12/23/2023 09:49:38 12/24/2023 08:03:36 Routine gynecologic examination done [id number] 9101 Z01.419 -Educated on the importance of SBE and awareness. -Discussed the importance of cervical cancer screenings -Educated osteoporos is prevention including calcium rich foods, weight bearing exercise.- Discussed the importance of exercise.- Nutrition discussed and the importance of a diet rich in fruits, vegetable, whole grains, and lean proteins.- Counseled regarding prevention of STD's and screening options, condom use and prevention .-Advised avoidance of tobacco, alcohol, and drugs.-Dis cussed sun safety and the importance of sunscreen. Body mass index 30+ - obesity 397521520 Z68.34 Pt educated on risks and importance of lifestyle modificati ons. Pt reports will continue to follow up with PCP. Furuncle of vulva [id number] 006 N76.4 Pt educated on management options. Pt opts for abx. Pt advised to complete wet warm compress. Discussed infection prevention . Pt notified to follow up in 10-14 days and notified to call office if symptoms worsen or if symptoms not continuing to improve. pt educated on warning signs and given ER precaution s. Skin tag 359917189 L91.8 Discussed options. Pt opts to schedule here with resident clinic for skin tag removal. RN to call pt (see pt case) Screening mammography 24 [id number] Z12.31 Patient educated on the importance of annual breast cancer screenings with mammograph y. mammogram negative in February 2023 and pcp orders Screening for malignant neoplasm of colon 826421566 Z12.11 Patient educated on importance of colon cancer screening with colonoscop y. Pt reports colonoscop y negative in 2017 and was told to repeat in 10 years. Pt reports management by pcp. Positive s creening for depression on PHQ-9 (Patient Health Questionnaire 9) [id number] Z13.31 Pt educated on resources and options. Pt denies concern. Pt advised to follow up as needed. [id number] MD Chayito Vaughn 14 IM 4 [facility] [address]ner [address] [place], [place] [address] [address] 01/02/2024 09:04:35 01/06/2024 09:55:05 Multiple skin tags [id number] L91.8 Patient tolerated procedure well. RTC precaution provided. [id number] ROHIT Louis 14 OB 4 [facility] [place] [address] 01/06/2024 10:37:23 01/09/2024 12:15:33 Low grade squamous intraepithelial lesion on cervical Papanicolaou smear [id number] 9105 R87.612 Pt re-educate d on results and educated on colposcopy . Pt educated on risks. Pt verbalized understand ing and scheduled colposcopy with Dr. Mc. Pt educated on importance of follow up. Furuncle of vulva [id number] N76.4 Resolved. pt educated on prevention and notified to call office if symptoms return. Skin tag [id number] L91.8 Pt educated on site and use of mupirocin. Pt notified to follow up with clinic within 1 week and call office if not improving. [id number] MD Chayito An 14 OB 4 [facility] [address] [place] [address] 02/02/2024 14:25:11 02/03/2024 08:36:42 Abnormal cervical Papanicolaou smear [id number] R87.619 --T zone not visualized --ECC obtained Overweight [id number] E66 .3 Health Concerns Section Related Observation LastModified by Organization Detai ls LastModified Time None Recorded Concern Status LastModified by Organization Details LastModified Time None Recorded Advance Directives Directive None Recorded Payers Encounter Date Sequence Insurance Name Policy Number Policy Vazquez Covered Member ID Vazquez Member ID Guarantor Name 01/06/2020 1 [employer]ENEF[employer] - OPEN ACCESS Pita Mcnally [id number] Pita Mcnally 12/23/2023 1 [employer] [id number] Pita Mcnally [id number] Pita Mcnally 01/02/2024 1 [employer] [id number] Pita Mcnally [id number] Pita Mcnally 01/06/2024 1 [employer] [id number] Pita Mcnally [id number] Pita Mcnally 02/02/2024 1 [employer] [id number] Pita Mcnally [id number] Pita Mcnally Notes Date Note Type Note Provider Name and Address Organization Details Recorded Time 01/06/2020 text/html COVID ScreeningReported bypatient.Onset/Durati on of fever:no fever Associated Symptoms:no cough; no shortness of breathCOVID-19 Symptoms August 2019Reported bypatient.COVID-19 Signs and Symptomscough resolved; fever resolved; shortness of breath resolved; chills resolved; repeated shaking with chills resolved; muscle pain resolved; headache resolved; sore throat resolved; loss of taste or smell resolved; vomiting or diarrhea resolved; fatigue resolved; anorexia resolved 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 KAYLEN Mckeon NP Attn: [address] [place], [address], [facility] 01/06/2020 11:39:25 12/23/2023 text/html Annual [employer] Post-MenopausalReporte d bypatient.Menopausal Symptoms:no menopausal symptoms; normal vaginal lubrication Vaginal Bleeding:history of menopause having occurred; no history of post menopausal bleeding Urinary Symptoms:no hematuria; no incontinence; no nocturia; no urinary frequency Vulva:no genital lesion; no vulvar atrophy Vagina:normal vaginal discharge; no vaginal atrophy Breast:no breast lump; no nipple discharge; no breast pain Sexual Complaints:no sexual complaints Psychological Symptoms:no depression; no anxiety Preventive Measures:encourage regular mammograms starting age 40; encourage self breast examination; encourage regular exercise; encourage no tobacco use; mammogram performed within the past year; needs to schedule mammogram; history of recent colonoscopy Pt is here for annual. Pt also reports infected hair on her right labia near clitoris. Pt reports popped on its own and is improving. Pt also reports skin tag on left axilla she would like removed. Pt denies any other complaints. PHQ score 4. pt denies issues with depression. ROHIT Louis Attn: [employer]ing[address] [facility], [place], [address], [facility] 12/23/2023 11:06:30 01/02/2024 text/html Pita is a 58 yo F who presents today for skin tags removal under her armpits. Patient reports tags has been there for few years now. Maria M Gill MD Attn: [employer]ing[address] [place], [address], [facility] 01/02/2024 17:47:54 01/06/2024 text/html Pt is here for f ollow up on furuncle of right vulva. Pt reports resolved with treatment. Pt also had abnormal pap and wanting to discuss colposcopy. Pt reports had right axilla skin tag removed and reports starting to look red and irritated. Pt denies fever or chills. Pt denies any other concerns at this time. ROHIT Louis Attn: Accounting[address] [facility], [place], [address], [facility] 01/06/2024 11:09:03 02/02/2024 text/html Patient presents for colposcopy secondary to abnormal pap smear of LSIL, HPV+. She denies any other complaints. Myke Mc MD Attn: Accounting[address] [facility], [place], [address], [facility] 02/02/2024 15:44:58 OBGyn Episode No OBEpisode recorded.
--- OUTSIDE RECORDS SUMMARY | 2024-06-04 09:17 | XMS_ITS ---
Author Name SANTI TANG Address [address] [place] [address] Phone [facility] Address [address] [place] [address] Phone Care Team Providers Care Silver Brazer Name Role Phone DO SANTI TANG Unavailable ALLERGIES, ADVERSE REACTIONS AND ALERTS Allergy Name Allergy Date Allergy Status Allergy Severity Allergy Reaction NO KNOWN DRUG ALLERGIES MEDICATIONS RxNorm Brand Name Prescription Ordered Value Order Unit Start Date Date Status [id number] Zoloft 50 mg tablet ZoloftSi mg, tablet, QD (# per day: 1.00), Routine, oral, 30 daysDispense #30, 5 Refills 30 tablet 014 09/25/19 14 Historic Diflucan 150 mg tablet DiflucanSi mg, tablet, QD (# per day: 1.00)QD, Routine, oral, 1 daysDispense #1, 0 Refills 1 tablet 014 09/04/19 14 Historic [id number] Diflucan 150 mg tablet SIG: Diflucan 150 mg tablet, 1 days, Dispense #1 Tablet, 1 RefillsDirections : Take 1 oral tablet once a day 1 tablet 014 11/06/19 14 Historic [id number] Lidocaine Viscous 2 % solution SIG: Lidocaine Viscous 2 % solution, 20 days, Dispense #120 Milliliter, 0 RefillsDirections : Gargle and expectorate 10mL every 4 hours as needed for sore throat. 120 solution 015 Historic [id number] Lexapro 10 mg tablet SIG: Lexapro 10 mg tablet, 30 days, Dispense #30 Tablet, 1 RefillsDirections : Take 1 oral tablet once a day 30 tablet [facility] [id number] Drisdol 50,000 unit capsule SIG: Drisdol 50,000 unit capsule, 28 days, Dispense #4 Capsule, 2 RefillsDirections : Take 1 tablet weekly 4 capsule [facility] [id number] Diflucan 150 mg tablet SIG: Diflucan 150 mg tablet, 1 days, Dispense #1 Tablet, 0 RefillsDirections : Take 1 oral tablet once a day 1 tablet 015 08/17/19 [facility] [id number] Effexor XR 75 mg capsule,extended release 24hr SIG: Effexor XR 75 mg capsule,extended release 24hr, 30 days, Dispense #30 Capsule, 0 RefillsDirections : Take 1 oral capsule once a day 30 capsule,ex tended release 24hr [facility] [id number] cyclobenzaprine 10 mg tablet SIG: cyclobenzaprine 10 mg tablet, 30 days, Dispense #90 Tablet, 0 RefillsDirections : Take 1 oral tablet 3 times a day as needed 90 tablet [facility] [id number] Ultram 50 mg tablet SIG: Ultram 50 mg tablet, 40 days, Dispense #120 Tablet, 0 RefillsDirections : Take 1 oral tablet as needed (6-8) 120 tablet [facility] [id number] Effexor XR 75 mg capsule,extended release 24hr SIG: Effexor XR 75 mg capsule,extended release 24hr, 30 days, Dispense #30 Capsule, 0 RefillsDirections : Take 1 oral capsule once a day 30 capsule,ex tended release 24hr [facility] [id number] Diflucan 150 mg tablet SIG: Diflucan 150 mg tablet, 1 days, Dispense #1 Tablet, 0 RefillsDirections : Take 1 oral tablet once a day 1 tablet 015 11/03/19 15 Histor [id number] Drisdol 50,000 unit capsule SIG: Drisdol 50,000 unit capsule, 28 days, Dispense #4 Capsule, 2 RefillsDirections : Take 1 tablet weekly 4 capsule [facility] [id number] Drisdol 50,000 unit capsule SIG: Drisdol 50,000 unit capsule, 28 days, Dispense #4 Capsule, 2 RefillsDirections : Take 1 tablet weekly 4 capsule Historic [id number] Drisdol 50,000 unit capsule SIG: Drisdol 50,000 unit capsule, 28 days, Dispense #4 Capsule, 2 RefillsDirections : Take 1 tablet weekly 4 capsule Histor [id number] Macrobid 100 mg capsule SIG: Macrobid 100 mg capsule, 5 days, Dispense #10 Capsule, 0 RefillsDirections : Take 1 oral capsule 2 times a day 10 capsule 015 12/14/19 15 Historic [id number] Diflucan 150 mg tablet SIG: Diflucan 150 mg tablet, 1 days, Dispense #1 Tablet, 0 RefillsDirections : Take 1 oral tablet once a day 1 tablet Histor [id number] Effexor XR 75 mg capsule,extended release 24hr SIG: Effexor XR 75 mg capsule,extended release 24hr, 30 days, Dispense #30 Capsule, 2 RefillsDirections : Take 1 oral capsule once a day 30 capsule,ex tended release 24hr Histor [id number] Diflucan 150 mg tablet SIG: Diflucan 150 mg tablet, 3 days, Dispense #3 Tablet, 0 RefillsDirections : Take 1 oral tablet once a day for 3 days 3 tablet Histor [id number] Effexor XR 75 mg capsule,extended release 24hr SIG: Effexor XR 75 mg capsule,extended release 24hr, 30 days, Dispense #30 Capsule, 2 RefillsDirections : Take 1 oral capsule once a day 30 capsule,ex tended release 24hr 016 Histor [id number] venlafaxine 75 mg capsule,extended release 24hr SIG: venlafaxine 75 mg capsule,extended release 24hr, Dispense # 30, 1 RefillsDirections : TAKE ONE CAPSULE BY MOUTH DAILY 30 capsule,ex tended release 24hr 017 06/15/19 17 Historic [id number] sertraline 50 mg tablet SIG: sertraline 50 mg tablet, 30 days, Dispense #30 Tablet, 1 RefillsDirections : Take 1 oral tablet once a day 30 tablet 017 Histor [id number] venlafaxine 75 mg capsule,extended release 24hr SIG: venlafaxine 75 mg capsule,extended release 24hr, 30 days, Dispense #30 Capsule, 6 RefillsDirections : TAKE ONE CAPSULE BY MOUTH DAILY 30 capsule,ex tended release 24hr [facility] [id number] venlafaxine 75 mg capsule,extended release 24hr SIG: venlafaxine 75 mg capsule,extended release 24hr, 30 days, Dispense #30 Capsule, 6 RefillsDirections : TAKE ONE CAPSULE BY MOUTH DAILY 30 capsule,ex tended release 24hr [facility] [id number] sertraline 50 mg tablet SIG: sertraline 50 mg tablet, 30 days, Dispense #30 Tablet, 1 RefillsDirections : Take 1 oral tablet once a day 30 tablet [facility] [id number] venlafaxine 75 mg capsule,extended release 24hr SIG: venlafaxine 75 mg capsule,extended release 24hr, 30 days, Dispense #30 Capsule, 6 RefillsDirections : TAKE ONE CAPSULE BY MOUTH DAILY 30 capsule,ex tended release 24hr [facility] [id number] Dexilant 60 mg capsule,biphase delayed releas SIG: Dexilant 60 mg oral capsule,biphase delayed releas, 15 days, Dispense #15 Capsule, 0 RefillsDirections : Take 1 oral capsule once a day 15 capsule,bi phase delayed releas [facility] [id number] [place] Thyroid 30 mg tablet SIG: [place] Thyroid 30 mg oral tablet, 30 days, Dispense #30 Tablet, 0 RefillsDirections : Take 1 oral tablet once a day 30 tablet [facility] [id number] Dexilant 60 mg capsule,biphase delayed releas SIG: Dexilant 60 mg oral capsule,biphase delayed releas, 20 days, Dispense #20 Capsule, 0 RefillsDirections : Take 1 oral capsule once a day 20 capsule,bi phase delayed releas [facility] [id number] Dexilant 60 mg capsule,biphase delayed releas SIG: Dexilant 60 mg oral capsule,biphase delayed releas, 30 days, Dispense #30 Capsule, 2 RefillsDirections : Take 1 oral capsule once a day 30 capsule,bi phase delayed releas Historic [id number] [place] Thyroid 30 mg tablet SIG: [place] Thyroid 30 mg tablet, Dispense # 30, 0 RefillsDirections : TAKE 1 TABLET BY MOUTH EVERY DAY 30 tablet 03/27/20 Historic [id number] sertraline 50 mg tablet SIG: sertraline 50 mg tablet, Dispense # 30, 0 RefillsDirections : TAKE 1 TABLET BY MOUTH EVERY DAY 30 tablet 03/27/20 Historic [id number] [place] Thyroid 60 mg tablet SIG: [place] Thyroid 60 mg oral tablet, 30 days, Dispense #30 Tablet, 2 RefillsDirections : TAKE 1 TABLET BY MOUTH EVERY DAY 30 tablet Historic [id number] Protonix 40 mg tablet,delayed release (DR/EC) SIG: Protonix 40 mg oral tablet,delayed release (DR/EC), 30 days, Dispense #30 Tablet, 4 RefillsDirections : Take 1 oral tablet once a day. 30 tablet,del ayed release (DR/EC) Historic [id number] sertraline 50 mg tablet SIG: sertraline 50 mg tablet, Dispense # 30, 0 RefillsDirections : TAKE 1 TABLET BY MOUTH EVERY DAY 30 tablet 05/07/19 Historic [id number] [place] Thyroid 60 mg tablet SIG: [place] Thyroid 60 mg oral tablet, 30 days, Dispense #30 Tablet, 2 RefillsDirections : TAKE 1 TABLET BY MOUTH EVERY DAY 30 tablet Historic [id number] sertraline 50 mg tablet SIG: sertraline 50 mg oral tablet, 30 days, Dispense #30 Tablet, 2 RefillsDirections : Take 1 oral tablet once a day 30 tablet Historic [id number] venlafaxine 75 mg capsule,extended release 24hr SIG: venlafaxine 75 mg oral capsule,extended release 24hr, 30 days, Dispense #30 Capsule, 2 RefillsDirections : TAKE ONE CAPSULE BY MOUTH DAILY 30 capsule,ex tended release 24hr Historic [id number] Protonix 40 mg tablet,delayed release (DR/EC) SIG: Protonix 40 mg oral tablet,delayed release (DR/EC), 30 days, Dispense #30 Tablet, 2 RefillsDirections : Take 1 oral tablet once a day at least 30 minutes prior to your first meal of the day. 30 tablet,del ayed release (DR/EC) Historic [id number] [place] Thyroid 60 mg tablet SIG: [place] Thyroid 60 mg tablet, Dispense # 30, 5 RefillsDirections : TAKE 1 TABLET BY MOUTH EVERY DAY 30 tablet 04/23/20 Historic [id number] Tessalon Perles 100 mg capsule SIG: Tessalon Perles 100 mg oral capsule, 15 days, Dispense #30 Capsule, 0 RefillsDirections : Take 1-2 oral capsules up to three times a day as needed for cough. 30 capsule Historic [id number] Cheratussin AC 10-100 mg/5 mL liquid SIG: Cheratussin AC 10-100 mg/5 mL oral liquid, 8 days, Dispense #80 Milliliter, 0 RefillsDirections : Take 5-10 oral milliliter nightly for cough. May repeat dose after 4 hours. 80 liquid Historic [id number] metformin 500 mg tablet extended release 24 hr SIG: metformin 500 mg oral tablet extended release 24 hr, 30 days, Dispense #30 Tablet, 2 RefillsDirections : Take 1 oral tablet once a day 30 tablet extended release 24 hr Historic [id number] [place] Thyroid 90 mg tablet SIG: [place] Thyroid 90 mg oral tablet, 30 days, Dispense #30 Tablet, 2 RefillsDirections : Take 1 oral tablet once a day 30 tablet Historic [id number] sertraline 50 mg tablet SIG: sertraline 50 mg tablet, Dispense # 30, 0 RefillsDirections : Take 1 tablet by mouth every day 30 tablet 12/12/19 Historic [id number] venlafaxine 75 mg capsule,extended release 24hr SIG: venlafaxine 75 mg capsule,extended release 24hr, Dispense # 30, 0 RefillsDirections : Take 1 capsule by mouth every day 30 capsule,ex tended release 24hr 12/12/19 Historic [id number] Tessalon Perles 100 mg capsule SIG: Tessalon Perles 100 mg oral capsule, 15 days, Dispense #30 Capsule, 0 RefillsDirections : Take 1-2 oral capsules up to three times a day as needed for cough. 30 capsule [facility] [id number] [place] Thyroid 90 mg tablet SIG: [place] Thyroid 90 mg oral tablet, 30 days, Dispense #30 Tablet, 0 RefillsDirections : Take 1 oral tablet once a day 30 tablet [facility] [id number] [place] Thyroid 15 mg tablet SIG: [place] Thyroid 15 mg oral tablet, 30 days, Dispense #30 Tablet, 2 RefillsDirections : Take 1 tablet with 90 mg tablet for a total of 105 mg once daily 30 tablet [facility] [id number] [place] Thyroid 90 mg tablet SIG: [place] Thyroid 90 mg oral tablet, 30 days, Dispense #30 Tablet, 1 RefillsDirections : Take 1 oral tablet once a day 30 tablet [facility] [id number] venlafaxine 75 mg capsule,extended release 24hr SIG: venlafaxine 75 mg oral capsule,extended release 24hr, 30 days, Dispense #30 Capsule, 0 RefillsDirections : Take 1 capsule by mouth every day 30 capsule,ex tended release 24hr [facility] [id number] Effexor XR 37.5 mg capsule,extended release 24hr SIG: Effexor XR 37.5 mg oral capsule,extended release 24hr, 30 days, Dispense #30 Capsule, 1 RefillsDirections : Take 1 capsule once daily 30 capsule,ex tended release 24hr [facility] [id number] venlafaxine 75 mg capsule,extended release 24hr SIG: venlafaxine 75 mg capsule,extended release 24hr, Dispense # 30, 0 RefillsDirections : Take 1 capsule by mouth every day 30 capsule,ex tended release 24hr 04/11/20 Histor [id number] venlafaxine 75 mg capsule,extended release 24hr SIG: venlafaxine 75 mg capsule,extended release 24hr, Dispense # 30, 0 RefillsDirections : TAKE 1 CAPSULE BY MOUTH EVERY DAY 30 capsule,ex tended release 24hr 05/01/19 20 Histor [id number] Zoloft 50 mg tablet SIG: Zoloft 50 mg oral tablet, 30 days, Dispense #30 Tablet, 0 RefillsDirections : Take 1 oral tablet once a day 30 tablet Histor [id number] Zoloft 50 mg tablet SIG: Zoloft 50 mg oral tablet, 90 days, Dispense #90 Tablet, 1 RefillsDirections : Take 1 oral tablet once a day 90 tablet [facility] [id number] Protonix 40 mg tablet,delayed release (DR/EC) SIG: Protonix 40 mg oral tablet,delayed release (DR/EC), 30 days, Dispense #30 Tablet, 2 RefillsDirections : Take 1 oral tablet once a day at least 30 minutes prior to your first meal of the day. 30 tablet,del ayed release (DR/EC) Histor [id number] [place] Thyroid 90 mg tablet SIG: [place] Thyroid 90 mg tablet, Dispense # 30, 0 RefillsDirections : TAKE 1 TABLET BY MOUTH EVERY DAY 30 tablet 06/27/19 20 Histor [id number] [place] Thyroid 90 mg tablet SIG: [place] Thyroid 90 mg tablet, Dispense # 30, 0 RefillsDirections : TAKE 1 TABLET BY MOUTH EVERY DAY 30 tablet 08/13/19 20 Histor [id number] [place] Thyroid 90 mg tablet SIG: [place] Thyroid 90 mg oral tablet, 30 days, Dispense #30 Tablet, 1 RefillsDirections : TAKE 1 TABLET BY MOUTH EVERY DAY 30 tablet Histor [id number] [place] Thyroid 90 mg tablet SIG: [place] Thyroid 90 mg oral tablet, 30 days, Dispense #30 Tablet, 1 RefillsDirections : TAKE 1 TABLET BY MOUTH EVERY DAY 30 tablet Histor [id number] [place] Thyroid 90 mg tablet SIG: [place] Thyroid 90 mg oral tablet, 30 days, Dispense #30 Tablet, 1 RefillsDirections : TAKE 1 TABLET BY MOUTH EVERY DAY 30 tablet Histor [id number] Zoloft 50 mg tablet SIG: Zoloft 50 mg oral tablet, 10 days, Dispense #10 Tablet, 0 RefillsDirections : Take 1 oral tablet once a day 10 tablet Historic [id number] sertraline 50 mg tablet SIG: sertraline 50 mg tablet, Dispense # 10, 0 RefillsDirections : Take 1 tablet by mouth every day 10 tablet 02/27/20 20 Historic [id number] sertraline 50 mg tablet SIG: sertraline 50 mg oral tablet, 30 days, Dispense #30 Tablet, 0 RefillsDirections : Take 1 tablet by mouth every day 30 tablet Historic [id number] [place] Thyroid 90 mg tablet SIG: [place] Thyroid 90 mg oral tablet, 30 days, Dispense #30 Tablet, 3 RefillsDirections : TAKE 1 TABLET BY MOUTH EVERY DAY. 30 tablet Historic [id number] [place] Thyroid 15 mg tablet SIG: [place] Thyroid 15 mg oral tablet, 30 days, Dispense #30 Tablet, 2 RefillsDirections : Take 1 oral tablet once a day with 90mg for a total of 105mg once daily 30 tablet Historic [id number] [place] Thyroid 90 mg tablet SIG: [place] Thyroid 90 mg oral tablet, 30 days, Dispense #30 Tablet, 3 RefillsDirections : Take 1 oral tablet once a day with 15mg for a total of 105mg once daily 30 tablet Historic [id number] sertraline 50 mg tablet SIG: sertraline 50 mg tablet, Dispense # 30, 1 RefillsDirections : Take 1 tablet by mouth every day 30 tablet 08/19/19 Historic [id number] [place] Thyroid 15 mg tablet SIG: [place] Thyroid 15 mg oral tablet, 30 days, Dispense #30 Tablet, 0 RefillsDirections : Take 1 oral tablet once a day with 90mg for a total of 105mg once daily 30 tablet Historic [id number] sertraline 50 mg tablet SIG: sertraline 50 mg tablet, Dispense # 30, 0 RefillsDirections : Take 1 tablet by mouth every day 30 tablet 021 10/13/19 Historic [id number] fexofenadine 60 mg tablet SIG: fexofenadine 60 mg oral tablet, 30 days, Dispense #30 Tablet, 0 RefillsDirections : Take 1 oral tablet once a day 30 tablet Historic [id number] [place] Thyroid 90 mg tablet SIG: [place] Thyroid 90 mg oral tablet, 30 days, Dispense #30 Tablet, 3 RefillsDirections : Take 1 oral tablet once a day with 15mg for a total of 105mg once daily 30 tablet Historic [id number] sertraline 50 mg tablet SIG: sertraline 50 mg oral tablet, 90 days, Dispense #90 Tablet, 1 RefillsDirections : Take 1 tablet by mouth every day 90 tablet Historic [id number] [place] Thyroid 90 mg tablet SIG: [place] Thyroid 90 mg oral tablet, 30 days, Dispense #30 Tablet, 3 RefillsDirections : Take 1 oral tablet once a day with 15mg for a total of 105mg once daily 30 tablet Historic [id number] [place] Thyroid 15 mg tablet SIG: [place] Thyroid 15 mg tablet, Dispense # 30, 2 RefillsDirections : TAKE 1 TABLET BY MOUTH ONCE DAILY WITH 90 MG FOR A TOTAL OF 105MG ONCE DAILY 30 tablet 02/08/20 Historic [id number] sertraline 50 mg tablet SIG: sertraline 50 mg oral tablet, 90 days, Dispense #90 Tablet, 1 RefillsDirections : Take 1 tablet by mouth every day 90 tablet Historic 400157 Synthroid 150 mcg tablet SIG: Synthroid 150 mcg oral tablet, 90 days, Dispense #90 Tablet, 0 RefillsDirections : Take one oral tablet every morning 60 minutes before food 90 tablet Historic 970508 Zofran 4 mg tablet SIG: Zofran 4 mg oral tablet, 7 days, Dispense #20 Tablet, 0 RefillsDirections : Take 1 tablet by mouth every 8 hours as needed for nausea 20 tablet Historic [id number] SERTRALINE HCL 50 MG TABLET 50 mg tablet SIG: SERTRALINE HCL 50 MG TABLET, Dispense #30, 2 Refills, Directions: Take 1 tablet by mouth every day 30 tablet Historic [id number] SERTRALINE HCL 50 MG TABLET 50 mg tablet SIG: SERTRALINE HCL 50 MG TABLET 50 mg oral tablet, 30 days, Dispense #30 Tablet, 2 RefillsDirections : Take 1 tablet by mouth every day 30 tablet 022 Historic 735218 pravastatin 80 mg tablet SIG: pravastatin 80 mg oral tablet, 90 days, Dispense #90 Tablet, 0 RefillsDirections : Take 1 oral tablet once a day 90 tablet 023 Historic [id number] fluconazole 150 mg tablet SIG: fluconazole 150 mg oral tablet, 1 days, Dispense #1 Tablet, 0 Refills, Directions: Take 1 oral tablet once a day 1 tablet 024 Historic 088003 ketorolac 10 mg tablet SIG: ketorolac 10 mg oral tablet, 10 days, Dispense #40 Tablet, 0 Refills, Directions: Take 1 oral tablet every 6 hours as needed for neck pain and stiffness 40 tablet 024 Current PROBLEMS Problem Code Problem Description Problem Status Proble m Date [id number] for cardiovascular system disease Screening for cardiovascular system disease Chronic 08/08/2014 N95.1-MENOPAUSAL AND FEMALE CLIMACTERIC STATES MENOPAUSAL AND FEMALE CLIMACTERIC STATES Chronic 05/19/2016 E55.9-VITAMIN D DEFICIENCY, UNSPECIFIED VITAMIN D DEFICIENCY, UNSPECIFIED Chronic 05/19/2016 F41.1-GENERALIZED ANXIETY DISORDER GENERALIZED ANXIETY DISORDER Chronic 05/19/2016 Z12.31-ENCOUNTER FOR SCREENING MAMMOGRAM FOR MALIGNANT NEOPLASM OF BREAST ENCOUNTER FOR SCREENING MAMMOGRAM FOR MALIGNANT NEOPLASM OF BREAST Historic 05/19/2016 R94.7-Abnormal results of other endocrine function studies Abnormal results of other endocrine function studies Chronic 05/19/2016 E78.49-OTHER HYPERLIPIDEMIA OTHER HYPERLIPIDEMIA Chron ic 05/19/2016 E03.9-HYPOTHYROIDISM, UNSPECIFIED HYPOTHYROIDISM, UNSPECIFIED Chronic 07/15/2018 K21.6-RIQZNH-ZWAHKYWVMX REFLUX DISEASE WITHOUT ESOPHAGITIS GASTRO-ESOPHAGEAL REFLUX DISEASE WITHOUT ESOPHAGITIS Chronic 07/15/2018 R68.81-EARLY SATIETY EARLY SATIETY Chronic 2018 R87.610-ASC US ON CYTOLOGIC SMEAR OF CERVIX ASC US ON CYTOLOGIC SMEAR OF CERVIX Chronic 07/15/2018 [id number] dependenc e with current use Nicotine dependence with current use Chronic 07/15/2018 R73.03-Prediabetes Prediabetes Chronic 10/20/ 9 F17.210-NICOTINE DEPENDENCE, CIGARETTES, UNCOMPLICATED NICOTINE DEPENDENCE, CIGARETTES, UNCOMPLICATED Chronic 09/20/2020 R06.83-SNORING SNORING Chronic 03/03/2023 R53.83-OTHER FATIGUE OTHER FATIGUE Chronic 2022 PROCEDURES Procedure Description Date Notes NO PROCEDURES PERFORMED ASSESSMENTS Assessment None PLAN OF TREATMENT Assessment Planned Activity LOINC Planned Harish e None CONSULTATION NOTE Note Author Date None HISTORY AND PHYSICAL NOTE Note Author Date None PROGRESS NOTE Note Author Date None DISCHARGE SUMMARY Note Author Date None IMAGING NARRATIVE Note Author Date None PATHOLOGY NARRATIVE Note Author Date None CHIEF COMPLAINT AND REASON FOR VISIT FUNCTIONAL STATUS Functional or Cognitive Find ing None MENTAL STATUS Cognitive Finding None ENCOUNTERS Encounter Type Provider Diagnoses Start Date Location None SOCIAL HISTORY Social Status Observation Current Every Day Smoker Sex:Female CARE TEAM INFORMATION Silver Brazer Role Location Phone (KITTY) SANTI TANG PHYSICIAN [address] [place] [address]
--- OUTSIDE RECORDS SUMMARY | 2024-06-04 09:17 | XMS_ITS | Encounter Summary ---
Author Organization [facility] Address [address] [place] [address] Phone Care Team Providers Care Recreation Specialist Name Role Phone Umesh Cullen DO Primary Care Provider [phone] Encounter Details Date Type Department Care Team (Late st Contact Info) Description 11/14/2021 Lab Requisition [facility] Services [address] [place] [address] Zainab Washington, CENTRAL SUPPLY SUPERVISOR, TRACTOR TRAILER TECHNICIAN [address] [place] [address] Encounter for pre-employment examination Social History Tobacco Use Types Packs/Day Years [...] on file Sexual Orientation Not on file COVID-19 Exposure Response Date Recorded In the last 10 days, have yo u been in contact with someone who was confirmed or suspected to have Coronavirus/COVID-19? Unable to assess 11/14/2021 11:46 AM CDT documented as of this encounter Plan of Treatment Not on file documented as of this encounter Procedures Procedure Name Priority Date/Time Associated Diagnosis Comments QUANTIFERON-TB GOLD PLUS Routine 11/14/2021 11:30 AM CDT Encounter for pre-employment examination documented in this encounter Results * QUANTIFERON-TB GOLD PLUS (11/14/2021 11:30 AM CDT) NIL CONTROL 0.04 <8.01 IU/mL 11/16/2021 12:44 PM CDT [facility] TB ANTIGEN 1 0.00 <0.35 IU/mL 11/16/2021 12:44 PM CDT [facility] TB ANTIGEN 2 0.00 <0.35 IU/mL 11/16/2021 12:44 PM CDT [facility] MITOGEN CONTROL >10.00 >0.49 IU/mL 11/17/19 12:44 PM CDT [facility] INTEPRETATION TB NEGATIVE NEGATIVE, NEGATIVE (TB antigen response less than 25% of internal negative control value) 11/16/2021 12:44 PM CDT [facility] Comment:No immune response t o Mycobacterium tuberculosis antigens was noted. M. tuberculosis infection unlikely. Blood No Phlebotomy Charged / Unknown 11/14/2021 11:30 AM CDT 11/14/2021 12:43 PM CDT Narrative [facility] - 11/16/2021 12:44 PM CDT A POSITIVE QUANTIFERON-TB GOLD PLUS RESULT SHOULD NOT BE THE SOLE OR DEFINITIVE BASIS FOR DETERMINING INFECTION WITH M.TUBERCULOSIS. Diagnosing or excluding tuberculosis disease, and assessing the probability of LTBI, requires a combination of epidemiological, historical, medical and diagnostic findings (e.g., acid fast bacilli (AFB) smear and culture, chest xray) that should be taken into account when interpreting QFT-Plus results. Furthermore, the magnitude of the measured gamma interferon level cannot be correlated to stage or degree of infection, level of immune responsiveness, or likelihood for progression to active disease. The Nil control adjusts for background (e.g., elevated levels of circulating gamma interferon or presence of heterophile antibodies). The Mitogen control serves as an internal positive control and verifies each specimen tested can produce a gamma interferon response. Low mitogen may occur with insufficient lymphocytes, reduced lymphocyte activity due to improper specimen handling, filling/mixing of the mitogen tube, or inability of the patient's lymphocytes to generate gamma interferon. Infection with other Mycobacteria, including M. kansasii, M. szulgai, and M. marinum, may cause false positive results. A negative QuantiFERON-TB Gold Plus result does not preclude the possibility of M. tuberculosis infection or tuberculosis disease: false negative results can be due to incorrect blood sample collection/ improper handling of the specimen, stage of infection (e.g., specimen obtained prior to the development of cellular immune response), co-morbid conditions which affect immune function, or other individual immunological factors. The minimum number of lymphocytes required for a reliable test has not been established and may also be variable. Diagnostic testing for Mycobacterium tuberculosis using Interferon Gamma Release Assays should follow applicable published guidelines, including when testing in populations such as children, women, and HIV-infected or otherwise immunocompromised individuals. 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
--- OUTSIDE RECORDS SUMMARY | 2024-06-04 09:20 | XMS_ITS ---
Author Name SANTI TANG Address [address] [place] [address] Phone 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 120 solution 015 Historic [id number] Lexapro 10 mg tablet SIG: Lexapro 10 mg tablet, 30 days, Dispense #30 Tablet, 1 RefillsDirections : Take 1 oral tablet once a day 30 tablet [facility] [id number] Drisdol 50,000 unit capsule SIG: Drisdol 50,000 unit capsule, 28 days, Dispense #4 Capsule, 2 RefillsDirections : Take 1 tablet weekly 4 capsule [facility] [id number] Diflucan 150 mg tablet SIG: Diflucan 150 mg tablet, 1 days, Dispense #1 Tablet, 0 RefillsDirections : Take 1 oral tablet once a day 1 tablet 015 08/17/19 [facility] [id number] Effexor XR 75 mg capsule,extended release 24hr SIG: Effexor XR 75 mg capsule,extended release 24hr, 30 days, Dispense #30 Capsule, 0 RefillsDirections : Take 1 oral capsule once a day 30 capsule,ex tended release 24hr [facility] [id number] cyclobenzaprine 10 mg tablet SIG: cyclobenzaprine 10 mg tablet, 30 days, Dispense #90 Tablet, 0 RefillsDirections : Take 1 oral tablet 3 times a day as needed 90 tablet [facility] [id number] Ultram 50 mg tablet SIG: Ultram 50 mg tablet, 40 days, Dispense #120 Tablet, 0 RefillsDirections : Take 1 oral tablet as needed (6-8) 120 tablet [facility] [id number] Effexor XR 75 mg capsule,extended release 24hr SIG: Effexor XR 75 mg capsule,extended release 24hr, 30 days, Dispense #30 Capsule, 0 RefillsDirections : Take 1 oral capsule once a day 30 capsule,ex tended release 24hr [facility] [id number] Diflucan 150 mg tablet SIG: Diflucan 150 mg tablet, 1 days, Dispense #1 Tablet, 0 RefillsDirections : Take 1 oral tablet once a day 1 tablet 015 11/03/19 15 Histor [id number] Drisdol 50,000 unit capsule SIG: Drisdol 50,000 unit capsule, 28 days, Dispense #4 Capsule, 2 RefillsDirections : Take 1 tablet weekly 4 capsule [facility] [id number] Drisdol 50,000 unit capsule SIG: Drisdol 50,000 unit capsule, 28 days, Dispense #4 Capsule, 2 RefillsDirections : Take 1 tablet weekly 4 capsule Historic [id number] Drisdol 50,000 unit capsule SIG: Drisdol 50,000 unit capsule, 28 days, Dispense #4 Capsule, 2 RefillsDirections : Take 1 tablet weekly 4 capsule Histor [id number] Macrobid 100 mg capsule SIG: Macrobid 100 mg capsule, 5 days, Dispense #10 Capsule, 0 RefillsDirections : Take 1 oral capsule 2 times a day 10 capsule 015 12/14/19 15 Historic [id number] Diflucan 150 mg tablet SIG: Diflucan 150 mg tablet, 1 days, Dispense #1 Tablet, 0 RefillsDirections : Take 1 oral tablet once a day 1 tablet Histor [id number] Effexor XR 75 mg capsule,extended release 24hr SIG: Effexor XR 75 mg capsule,extended release 24hr, 30 days, Dispense #30 Capsule, 2 RefillsDirections : Take 1 oral capsule once a day 30 capsule,ex tended release 24hr Histor [id number] Diflucan 150 mg tablet SIG: Diflucan 150 mg tablet, 3 days, Dispense #3 Tablet, 0 RefillsDirections : Take 1 oral tablet once a day for 3 days 3 tablet Histor [id number] Effexor XR 75 mg capsule,extended release 24hr SIG: Effexor XR 75 mg capsule,extended release 24hr, 30 days, Dispense #30 Capsule, 2 RefillsDirections : Take 1 oral capsule once a day 30 capsule,ex tended release 24hr 016 Histor [id number] venlafaxine 75 mg capsule,extended release 24hr SIG: venlafaxine 75 mg capsule,extended release 24hr, Dispense # 30, 1 RefillsDirections : TAKE ONE CAPSULE BY MOUTH DAILY 30 capsule,ex tended release 24hr 017 06/15/19 17 Historic [id number] sertraline 50 mg tablet SIG: sertraline 50 mg tablet, 30 days, Dispense #30 Tablet, 1 RefillsDirections : Take 1 oral tablet once a day 30 tablet 017 Histor [id number] venlafaxine 75 mg capsule,extended release 24hr SIG: venlafaxine 75 mg capsule,extended release 24hr, 30 days, Dispense #30 Capsule, 6 RefillsDirections : TAKE ONE CAPSULE BY MOUTH DAILY 30 capsule,ex tended release 24hr [facility] [id number] venlafaxine 75 mg capsule,extended release 24hr SIG: venlafaxine 75 mg capsule,extended release 24hr, 30 days, Dispense #30 Capsule, 6 RefillsDirections : TAKE ONE CAPSULE BY MOUTH DAILY 30 capsule,ex tended release 24hr [facility] [id number] sertraline 50 mg tablet SIG: sertraline 50 mg tablet, 30 days, Dispense #30 Tablet, 1 RefillsDirections : Take 1 oral tablet once a day 30 tablet [facility] [id number] venlafaxine 75 mg capsule,extended release 24hr SIG: venlafaxine 75 mg capsule,extended release 24hr, 30 days, Dispense #30 Capsule, 6 RefillsDirections : TAKE ONE CAPSULE BY MOUTH DAILY 30 capsule,ex tended release 24hr [facility] [id number] Dexilant 60 mg capsule,biphase delayed releas SIG: Dexilant 60 mg oral capsule,biphase delayed releas, 15 days, Dispense #15 Capsule, 0 RefillsDirections : Take 1 oral capsule once a day 15 capsule,bi phase delayed releas [facility] [id number] Agra Thyroid 30 mg tablet SIG: Agra Thyroid 30 mg oral tablet, 30 days, Dispense #30 Tablet, 0 RefillsDirections : Take 1 oral tablet once a day 30 tablet [facility] [id number] Dexilant 60 mg capsule,biphase delayed releas SIG: Dexilant 60 mg oral capsule,biphase delayed releas, 20 days, Dispense #20 Capsule, 0 RefillsDirections : Take 1 oral capsule once a day 20 capsule,bi phase delayed releas [facility] [id number] Dexilant 60 mg capsule,biphase delayed releas SIG: Dexilant 60 mg oral capsule,biphase delayed releas, 30 days, Dispense #30 Capsule, 2 RefillsDirections : Take 1 oral capsule once a day 30 capsule,bi phase delayed releas Historic [id number] Agra Thyroid 30 mg tablet SIG: Agra Thyroid 30 mg tablet, Dispense # 30, 0 RefillsDirections : TAKE 1 TABLET BY MOUTH EVERY DAY 30 tablet 03/27/20 Historic [id number] sertraline 50 mg tablet SIG: sertraline 50 mg tablet, Dispense # 30, 0 RefillsDirections : TAKE 1 TABLET BY MOUTH EVERY DAY 30 tablet 03/27/20 Historic [id number] Agra Thyroid 60 mg tablet SIG: Agra Thyroid 60 mg oral tablet, 30 days, Dispense #30 Tablet, 2 RefillsDirections : TAKE 1 TABLET BY MOUTH EVERY DAY 30 tablet Historic [id number] Protonix 40 mg tablet,delayed release (DR/EC) SIG: Protonix 40 mg oral tablet,delayed release (DR/EC), 30 days, Dispense #30 Tablet, 4 RefillsDirections : Take 1 oral tablet once a day. 30 tablet,del ayed release (DR/EC) Historic [id number] sertraline 50 mg tablet SIG: sertraline 50 mg tablet, Dispense # 30, 0 RefillsDirections : TAKE 1 TABLET BY MOUTH EVERY DAY 30 tablet 05/07/19 Historic [id number] Agra Thyroid 60 mg tablet SIG: Agra Thyroid 60 mg oral tablet, 30 days, Dispense #30 Tablet, 2 RefillsDirections : TAKE 1 TABLET BY MOUTH EVERY DAY 30 tablet Historic [id number] sertraline 50 mg tablet SIG: sertraline 50 mg oral tablet, 30 days, Dispense #30 Tablet, 2 RefillsDirections : Take 1 oral tablet once a day 30 tablet Historic [id number] venlafaxine 75 mg capsule,extended release 24hr SIG: venlafaxine 75 mg oral capsule,extended release 24hr, 30 days, Dispense #30 Capsule, 2 RefillsDirections : TAKE ONE CAPSULE BY MOUTH DAILY 30 capsule,ex tended release 24hr Historic [id number] Protonix 40 mg tablet,delayed release (DR/EC) SIG: Protonix 40 mg oral tablet,delayed release (DR/EC), 30 days, Dispense #30 Tablet, 2 RefillsDirections : Take 1 oral tablet once a day at least 30 minutes prior to your first meal of the day. 30 tablet,del ayed release (DR/EC) Historic [id number] Agra Thyroid 60 mg tablet SIG: Agra Thyroid 60 mg tablet, Dispense # 30, 5 RefillsDirections : TAKE 1 TABLET BY MOUTH EVERY DAY 30 tablet 04/23/20 Historic [id number] Tessalon Perles 100 mg capsule SIG: Tessalon Perles 100 mg oral capsule, 15 days, Dispense #30 Capsule, 0 RefillsDirections : Take 1-2 oral capsules up to three times a day as needed for cough. 30 capsule Historic [id number] Cheratussin AC 10-100 mg/5 mL liquid SIG: Cheratussin AC 10-100 mg/5 mL oral liquid, 8 days, Dispense #80 Milliliter, 0 RefillsDirections : Take 5-10 oral milliliter nightly for cough. May repeat dose after 4 hours. 80 liquid Historic [id number] metformin 500 mg tablet extended release 24 hr SIG: metformin 500 mg oral tablet extended release 24 hr, 30 days, Dispense #30 Tablet, 2 RefillsDirections : Take 1 oral tablet once a day 30 tablet extended release 24 hr Historic [id number] Agra Thyroid 90 mg tablet SIG: Agra Thyroid 90 mg oral tablet, 30 days, Dispense #30 Tablet, 2 RefillsDirections : Take 1 oral tablet once a day 30 tablet Historic [id number] sertraline 50 mg tablet SIG: sertraline 50 mg tablet, Dispense # 30, 0 RefillsDirections : Take 1 tablet by mouth every day 30 tablet 12/12/19 Historic [id number] venlafaxine 75 mg capsule,extended release 24hr SIG: venlafaxine 75 mg capsule,extended release 24hr, Dispense # 30, 0 RefillsDirections : Take 1 capsule by mouth every day 30 capsule,ex tended release 24hr 12/12/19 Historic [id number] Tessalon Perles 100 mg capsule SIG: Tessalon Perles 100 mg oral capsule, 15 days, Dispense #30 Capsule, 0 RefillsDirections : Take 1-2 oral capsules up to three times a day as needed for cough. 30 capsule [facility] [id number] Agra Thyroid 90 mg tablet SIG: Agra Thyroid 90 mg oral tablet, 30 days, Dispense #30 Tablet, 0 RefillsDirections : Take 1 oral tablet once a day 30 tablet [facility] [id number] Agra Thyroid 15 mg tablet SIG: Agra Thyroid 15 mg oral tablet, 30 days, Dispense #30 Tablet, 2 RefillsDirections : Take 1 tablet with 90 mg tablet for a total of 105 mg once daily 30 tablet [facility] [id number] Agra Thyroid 90 mg tablet SIG: Agra Thyroid 90 mg oral tablet, 30 days, Dispense #30 Tablet, 1 RefillsDirections : Take 1 oral tablet once a day 30 tablet [facility] [id number] venlafaxine 75 mg capsule,extended release 24hr SIG: venlafaxine 75 mg oral capsule,extended release 24hr, 30 days, Dispense #30 Capsule, 0 RefillsDirections : Take 1 capsule by mouth every day 30 capsule,ex tended release 24hr [facility] [id number] Effexor XR 37.5 mg capsule,extended release 24hr SIG: Effexor XR 37.5 mg oral capsule,extended release 24hr, 30 days, Dispense #30 Capsule, 1 RefillsDirections : Take 1 capsule once daily 30 capsule,ex tended release 24hr [facility] [id number] venlafaxine 75 mg capsule,extended release 24hr SIG: venlafaxine 75 mg capsule,extended release 24hr, Dispense # 30, 0 RefillsDirections : Take 1 capsule by mouth every day 30 capsule,ex tended release 24hr 04/11/20 Histor [id number] venlafaxine 75 mg capsule,extended release 24hr SIG: [...] oral tablet once a day 90 tablet [facility] [id number] Protonix 40 mg tablet,delayed release (DR/EC) SIG: Protonix 40 mg oral tablet,delayed release (DR/EC), 30 days, Dispense #30 Tablet, 2 RefillsDirections : Take 1 oral tablet once a day at least 30 minutes prior to your first meal of the day. 30 tablet,del ayed release (DR/EC) Histor [id number] Agra Thyroid 90 mg tablet SIG: Agra Thyroid 90 mg tablet, Dispense # 30, 0 RefillsDirections : TAKE 1 TABLET BY MOUTH EVERY DAY 30 tablet 06/27/19 20 Histor [id number] Agra Thyroid 90 mg tablet SIG: Agra Thyroid 90 mg tablet, Dispense # 30, 0 RefillsDirections : TAKE 1 TABLET BY MOUTH EVERY DAY 30 tablet 08/13/19 20 Histor [id number] Agra Thyroid 90 mg tablet SIG: Agra Thyroid 90 mg oral tablet, 30 days, Dispense #30 Tablet, 1 RefillsDirections : TAKE 1 TABLET BY MOUTH EVERY DAY 30 tablet Histor [id number] Agra Thyroid 90 mg tablet SIG: Agra Thyroid 90 mg oral tablet, 30 days, Dispense #30 Tablet, 1 RefillsDirections : TAKE 1 TABLET BY MOUTH EVERY DAY 30 tablet Histor [id number] Agra Thyroid 90 mg tablet SIG: Agra Thyroid 90 mg oral tablet, 30 days, Dispense #30 Tablet, 1 RefillsDirections : TAKE 1 TABLET BY MOUTH EVERY DAY 30 tablet Histor [id number] Zoloft 50 mg tablet SIG: Zoloft 50 mg oral tablet, 10 days, Dispense #10 Tablet, 0 RefillsDirections : Take 1 oral tablet once a day 10 tablet Historic [id number] sertraline 50 mg tablet SIG: sertraline 50 mg tablet, Dispense # 10, 0 RefillsDirections : Take 1 tablet by mouth every day 10 tablet 02/27/20 20 Historic [id number] sertraline 50 mg tablet SIG: sertraline 50 mg oral tablet, 30 days, Dispense #30 Tablet, 0 RefillsDirections : Take 1 tablet by mouth every day 30 tablet Historic [id number] Agra Thyroid 90 mg tablet SIG: Agra Thyroid 90 mg oral tablet, 30 days, Dispense #30 Tablet, 3 RefillsDirections : TAKE 1 TABLET BY MOUTH EVERY DAY. 30 tablet Historic [id number] Agra Thyroid 15 mg tablet SIG: Agra Thyroid 15 mg oral tablet, 30 days, Dispense #30 Tablet, 2 RefillsDirections : Take 1 oral tablet once a day with 90mg for a total of 105mg once daily 30 tablet Historic [id number] Agra Thyroid 90 mg tablet SIG: Agra Thyroid 90 mg oral tablet, 30 days, Dispense #30 Tablet, 3 RefillsDirections : Take 1 oral tablet once a day with 15mg for a total of 105mg once daily 30 tablet Historic [id number] sertraline 50 mg tablet SIG: sertraline 50 mg tablet, Dispense # 30, 1 RefillsDirections : Take 1 tablet by mouth every day 30 tablet 08/19/19 Historic [id number] Agra Thyroid 15 mg tablet SIG: Agra Thyroid 15 mg oral tablet, 30 days, Dispense #30 Tablet, 0 RefillsDirections : Take 1 oral tablet once a day with 90mg for a total of 105mg once daily 30 tablet Historic [id number] sertraline 50 mg tablet SIG: sertraline 50 mg tablet, Dispense # 30, 0 RefillsDirections : Take 1 tablet by mouth every day 30 tablet 021 10/13/19 Historic [id number] fexofenadine 60 mg tablet SIG: fexofenadine 60 mg oral tablet, 30 days, Dispense #30 Tablet, 0 RefillsDirections : Take 1 oral tablet once a day 30 tablet Historic [id number] Agra Thyroid 90 mg tablet SIG: Agra Thyroid 90 mg oral tablet, 30 days, Dispense #30 Tablet, 3 RefillsDirections : Take 1 oral tablet once a day with 15mg for a total of 105mg once daily 30 tablet Historic [id number] sertraline 50 mg tablet SIG: sertraline 50 mg oral tablet, 90 days, Dispense #90 Tablet, 1 RefillsDirections : Take 1 tablet by mouth every day 90 tablet Historic [id number] Agra Thyroid 90 mg tablet SIG: Agra Thyroid 90 mg oral tablet, 30 days, Dispense #30 Tablet, 3 RefillsDirections : Take 1 oral tablet once a day with 15mg for a total of 105mg once daily 30 tablet Historic 105463 Agra Thyroid 15 mg tablet SIG: Agra Thyroid 15 mg tablet, Dispense # 30, 2 RefillsDirections : TAKE 1 TABLET BY MOUTH ONCE DAILY WITH 90 MG FOR A TOTAL OF 105MG ONCE DAILY 30 tablet 02/08/20 Historic [id number] sertraline 50 mg tablet SIG: sertraline 50 mg oral tablet, 90 days, Dispense #90 Tablet, 1 RefillsDirections : Take 1 tablet by mouth every day 90 tablet Historic [id number] Synthroid 150 mcg tablet SIG: Synthroid 150 mcg oral tablet, 90 days, Dispense #90 Tablet, 0 RefillsDirections : Take one oral tablet every morning 60 minutes before food 90 tablet Historic [id number] Zofran 4 mg tablet SIG: Zofran 4 mg oral tablet, 7 days, Dispense #20 Tablet, 0 RefillsDirections : Take 1 tablet by mouth every 8 hours as needed for nausea 20 tablet Historic [id number] SERTRALINE HCL 50 MG TABLET 50 mg tablet SIG: SERTRALINE HCL 50 MG TABLET, Dispense #30, 2 Refills, Directions: Take 1 tablet by mouth every day 30 tablet Historic [id number] SERTRALINE HCL 50 MG TABLET 50 mg tablet SIG: SERTRALINE HCL 50 MG TABLET 50 mg oral tablet, 30 days, Dispense #30 Tablet, 2 RefillsDirections : Take 1 tablet by mouth every day 30 tablet 022 Historic [id number] pravastatin 80 mg tablet SIG: pravastatin 80 mg oral tablet, 90 days, Dispense #90 Tablet, 0 RefillsDirections : Take 1 oral tablet once a day 90 tablet 023 Historic [id number] fluconazole 150 mg tablet SIG: fluconazole 150 mg oral tablet, 1 days, Dispense #1 Tablet, 0 Refills, Directions: Take 1 oral tablet once a day 1 tablet 024 Historic [id number] ketorolac 10 mg tablet SIG: ketorolac 10 mg oral tablet, 10 days, Dispense #40 Tablet, 0 Refills, Directions: Take 1 oral tablet every 6 hours as needed for neck pain and stiffness 40 tablet 024 Current PROBLEMS Problem Code Problem Description Problem Status Proble m Date [id number] for cardiovascular system disease Screening for cardiovascular [...] 05/19/2016 E03.9-HYPOTHYROIDISM, UNSPECIFIED HYPOTHYROIDISM, UNSPECIFIED Chronic 07/15/2018 K21.3-WFSLAC-[id number] REFLUX DISEASE WITHOUT ESOPHAGITIS GASTRO-ESOPHAGEAL REFLUX DISEASE WITHOUT ESOPHAGITIS Chronic 07/15/2018 R68.81-EARLY SATIETY EARLY SATIETY Chronic 2018 R87.610-ASC US ON CYTOLOGIC SMEAR OF CERVIX ASC US ON CYTOLOGIC SMEAR OF CERVIX Chronic 07/15/2018 [id number] dependenc e with current use Nicotine dependence [...] Every Day Smoker Sex:Female 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
--- NOTE | 2024-06-04 09:26 | ED.URI ---
HPI - URI/Sore Throat General Stated Complaint: flu/covid symptoms Time Seen by Provider: 06/04/24 09:26 Source: patient Mode of arrival: ambulatory Limitations: no limitations History of Present Illness HPI Narrative: 58-year-old female presents with complaint of cough, chest congestion, fatigue, fever, body aches, chills starting yesterday. Exposure to sick coworkers with similar symptoms. Denies nausea vomiting diarrhea. Reports joint pain bad . All systems reviewed and negative except as noted above. Related Data Allergies Allergy/AdvReac Type Severity Reaction Status Date / Time No Known Allergies Allergy Verified 06/04/24 09:20 Review of Systems Review of Systems: CONSTITUTIONAL: Denies fever, chills, or sweats. EYES: Denies visual changes, redness, or discharge. ENT: Reports rhinorrhea, congestion. Denies sore throat, or otalgia. CARDIOVASCULAR: Denies chest pain, palpitations, or edema. RESPIRATORY: reports cough. Denies dyspnea. GASTROINTESTINAL: Denies abdominal pain, nausea, vomiting, or diarrhea. GENITOURINARY: Denies dysuria or hematuria. SKIN: Denies rash or itching. MUSCULOSKELETAL: Denies back pain, joint pain . Reports myalgia. NEUROLOGIC: Denies headache, numbness, or weakness. PSYCHIATRIC: Denies anxiety or depression. All other systems reviewed are negative, except as documented in HPI. PMFSH Comments At time of signature, agree with nursing past medical, surgical, social and family history. There is no relevant family history pertinent to the presenting complaint. Exam Narrative: GENERAL: This is a well-nourished, well-developed patient, ill-appearing but no acute distress HEAD: normocephalic, atraumatic. EYES: PERRL. Sclera clear/white. Vision is grossly intact. EARS: External ears normal, auditory canals clear and without drainage, TMs normal without perforation. Hearing grossly intact. NOSE: External nose normal with no obvious nasal discharge, nares without redness, no rhinorrhea. THROAT: Mucous membranes moist, posterior pharynx clear. NECK: Neck supple, non-tender without lymphadenopathy, masses or thyromegaly. CARDIOVASCULAR: Regular rate and rhythm without murmurs, gallops, or rubs. RESPIRATORY: Clear to auscultation. Breath sounds equal bilaterally. No wheezes, rales, or rhonchi. SKIN: warm, Dry, intact with no suspicious lesions or rash, good texture and turgor. NEURO: awake, alert, and oriented to person, place and time. There were no obvious focal neurologic abnormalities. EXTREMITIES: No joint tenderness, effusion, or edema noted. Course Course Level of Care: Express Care Visit Vital Signs Vital signs: Vital Signs Temperature 37.8 C H 06/04/24 09:01 Pulse Rate 103 H 06/04/24 09:01 Respiratory Rate 18 06/04/24 09:01 Blood Pressure 117/70 06/04/24 09:01 Pulse Oximetry 97 06/04/24 09:01 Oxygen Delivery Room Air 06/04/24 09:01 Temperature 37.8 C H 06/04/24 09:01 Pulse Rate 103 H 06/04/24 09:01 Respiratory Rate 18 06/04/24 09:01 Blood Pressure 117/70 06/04/24 09:01 Pulse Oximetry 97 06/04/24 09:01 Oxygen Delivery Room Air 06/04/24 09:01 reviewed MDM - URI/Sore Throat MDM Narrative Medical decision making narrative: patient alert, nontoxic. Negative COVID and influenza test. Is possible patient's influenza test is a false negative due to testing at early onset symptoms. Recommend patient continue [id number] medications to treat symptoms. Will prescribe Medrol Dosepak for joint pain. Patient agrees with plan of care. Please be advised this is a medical document. It is intended for [id number] communication. It is written in medical language and may contain unfamiliar abbreviations or verbiage. Medical documents are intended to carry relevant information, facts as evident, and the clinical opinion of the practitioner at the time of the encounter. This report may have been done utilizing a voice recognition system. Attempts have been made to correct errors. However, there may be uncorrected grammatical, spelling, and recognition errors present. The file time of this note does not necessarily represent the time of service. Differential Diagnosis Differential diagnosis: Likely upper respiratory infection, sinusitis, viral infection and influenza Discharge Plan Discharge Clinical Impression: Acute viral syndrome Patient Disposition: Home, Self-Care Condition: Stable Instructions: Viral Syndrome (ED) Additional Instructions: Your COVID and influenza test was negative today. Your symptoms are viral and may last 10-14 days. Alternate between ibuprofen and Tylenol every 4 hours to treat pain and fever. Drink at least 64 oz of water a day. Follow-up with your primary care physician if symptoms are not improving. Patient Language: Wolof Prescriptions: New benzonatate 200 mg capsule 200 mg PO TID PRN (Reason: cough) Qty: 20 0RF methylprednisolone [Medrol (Peter)] 4 mg tablets,dose pack See Rx Instructions PO .COMPLEX Qty: 21 0RF Rx Instructions: orally per package directions Follow-up/Referrals: Subhash,Umesh Rodrigues DO [Primary Care Provider] - Stand Alone Forms: Work/School Release IP Time of Disposition: 09:33
[2024-06-04 09:31] LABS: EDCOVIDSCREEN Negative (Negative); EDINFLUASCREEN Negative (Negative); EDINFLUBSCREEN Negative (Negative)
== END 2024-06-04 09:42 | disposition home or self-care (01) ==
PROVIDERS: Emergency Provider Nurse Practitioner Family; PCP Family Medicine
DX: B34.9 Viral infection, unspecified (principal); Z20.822 Contact with and (suspected) exposure to COVID-19
CPT/HCPCS: 87426; 87804; 99203; G0463